=== PATIENT | male | born 1955 | race Caucasian/White ===

== ENCOUNTER 2016-11-25 14:48 | Inpatient (IN) | payer OTHER ==
--- NOTE | 2016-11-25 15:24 | PDOC ---
History of Present Illness <Adam Cespedes - Last Filed: 11/25/16 15:24> - General History Source: Patient Exam Limitations: No Limitations - History of Present Illness Initial Comments: 11/25/16 16:09 The patient is a 61 year old male with a significant past medical history of cardiac arrest and coma in 2009, s/p defibrillator, hypothyroidism, CVA with neuro deficits, and diabetes diagnosed (2 months ago), presenting to the Emergency Department with constipation for one week, and rectal bleeding. The patient reports that he has not been able to pass a bowel movement in one week. He admits to abdominal pain and a decreased appetite associated with the constipation. He reports taking OTC laxatives as well as a fleets enema that did not help his constipation. He admits that he now has bilateral leg pain, which is exacerbated by walking. He reports that in 2009 he was in cardiac arrest, without oxygen for 10 minutes, and was subsequently a coma for 2 months. His daughter reports that since the coma he has had neurologic deficits. She admits that he recently was diagnosed with diabetes about 2 months ago, and was placed on two new medications. She admits that since being on the new medications he has had intermittent diarrhea, constipation, and rectal bleeding. She describes the blood as light red. She also admits that the patient is a cigarette smoker, and has been smoking more often as of recently. The patient denies nausea, or vomiting. Patient denies fever, cough, or chills. Patient denies dysuria, urinary frequency, and urgency. Patient denies diarrhea , or hematochezia. [employer] Administrator: Dr. Jasiel Sahni PCP: [place]? Current Medications: Pravastin, Aspirin, Folic acid, Furosemide, Levothyroxine, glimepiride, Metformin, Levetiracetam, Carvedilol, Olanzapine, Warfarin, Lisinopril, and Amiodarone <Jill Alarcon - Last Filed: 11/25/16 16:50> <Viji Kelley - Last Filed: 11/25/16 21:11> <Cherelle Rangel - Last Filed: 11/26/16 01:57> - General Chief Complaint: Constipation Stated Complaint: CONSTIPATION/NOSE BLEED/leg cramping Time Seen by Provider: 11/25/16 15:24 Past History - Past Medical History Thyroid Disease: No - Psycho/Social/Smoking Cessation Hx Anxiety: No Suicidal Ideation: No Smoking History: Current some day smoker Number of Cigarettes Smoked Daily: 20 Information on smoking cessation initiated: No Hx Alcohol Use: No Drug/Substance Use Hx: No Substance Use Type: None <Adam Cespedes - Last Filed: 11/25/16 15:24> <AgnesSamii - Last Filed: 11/25/16 16:50> <Viji Kelley - Last Filed: 11/25/16 21:11> <Cherelle Rangel - Last Filed: 11/26/16 01:57> - Past Medical History Allergies/Adverse Reactions: Allergies Allergy/AdvReac Type Severity Reaction Status Date / Time No Known Allergies Allergy Verified 11/25/16 15:05 Home Medications: Ambulatory Orders Amiodarone HCl 200 mg PO DAILY 11/25/16 Aspirin [ASA -] 81 mg PO DAILY 11/25/16 Carvedilol [Coreg -] 6.25 mg PO ONCE 11/25/16 Folic Acid 1 mg PO DAILY 11/25/16 Furosemide 20 mg PO DAILY 11/25/16 Glimepiride 2 mg PO DAILY 11/25/16 Levetiracetam [Keppra Xr -] 500 mg PO DAILY 11/25/16 Levothyroxine [Synthroid -] 75 mcg PO DAILY 11/25/16 Lisinopril [Zestril] 5 mg PO DAILY 11/25/16 Metformin HCl 850 mg PO DAILY 11/25/16 Olanzapine 2.5 mg PO DAILY 11/25/16 Pravastatin Sodium [Pravachol (Nf)] 80 mg PO HS 11/25/16 Warfarin Sodium 7.5 mg PO DAILY 11/25/16 Review of Systems - Review of Systems Able to Perform ROS?: Yes Comments:: 11/25/16 16:10 GENERAL/CONSTITUTIONAL: No fever or chills. No weakness. HEAD, EYES, EARS, NOSE AND THROAT: No change in vision. No ear pain or discharge. No sore throat. CARDIOVASCULAR: No chest pain or shortness of breath. RESPIRATORY: No cough, wheezing, or hemoptysis. GASTROINTESTINAL: + abdominal pain, + constipation, + decreased appetite. No nausea, vomiting, diarrhea. GENITOURINARY: No dysuria, frequency, or change in urination. MUSCULOSKELETAL: + bilateral leg pain. No joint pain. No neck or back pain. SKIN: No rash NEUROLOGIC: No headache, vertigo, loss of consciousness, or change in strength/ sensation. ENDOCRINE: No increased thirst. No abnormal weight change. HEMATOLOGIC/LYMPHATIC: No anemia, easy bleeding, or history of blood clots. ALLERGIC/IMMUNOLOGIC: No hives or skin allergy. <Jill Alarcon - Last Filed: 11/25/16 16:50> *Physical Exam - Vital Signs Last Vital Signs Temp Pulse Resp BP Pulse Ox 98.8 F 79 18 111/74 100 11/25/16 15:02 11/25/16 15:02 11/25/16 15:02 11/25/16 15:02 11/25/16 15:02 <Adam Cespedes - Last Filed: 11/25/16 15:24> - Vital Signs Last Vital Signs Temp Pulse Resp BP Pulse Ox 98.8 F 79 18 111/74 100 11/25/16 15:02 11/25/16 15:02 11/25/16 15:02 11/25/16 15:02 11/25/16 15:02 - Physical Exam Comments: 11/25/16 16:11 GENERAL: Awake, alert, and fully oriented, in no acute distress HEAD: No signs of trauma EYES: PERRLA, EOMI, sclera anicteric, conjunctiva clear ENT: Auricles normal inspection, hearing grossly normal, nares patent, oropharynx clear without exudates. Moist mucosa NECK: Normal ROM, supple, no lymphadenopathy, JVD, or masses LUNGS: Breath sounds equal, clear to auscultation bilaterally. No wheezes, and no crackles HEART: Regular rate and rhythm, normal S1 and S2, no murmurs, rubs or gallops ABDOMEN: Abdomen distended and diffusely tender, most tender at left upper and left lower quadrants. Soft, No guarding, no rebound. No masses EXTREMITIES: Normal range of motion, no edema. No clubbing or cyanosis. No cords, erythema, or tenderness NEUROLOGICAL: Cranial nerves II through XII grossly intact. Normal speech SKIN: Warm, Dry, normal turgor, no rashes or lesions noted. <Jill Alarcon - Last Filed: 11/25/16 16:50> - Vital Signs Last Vital Signs Temp Pulse Resp BP Pulse Ox 98.8 F 79 18 111/74 100 11/25/16 15:02 11/25/16 15:02 11/25/16 15:02 11/25/16 15:02 11/25/16 15:02 <WarrenChapitoViji - Last Filed: 11/25/16 21:11> - Vital Signs Last Vital Signs Temp Pulse Resp BP Pulse Ox 98.8 F 79 18 111/74 100 11/25/16 15:02 11/25/16 15:02 11/25/16 15:02 11/25/16 15:02 11/25/16 15:02 <Cherelle Rangel - Last Filed: 11/26/16 01:57> Heart Score/ECG Review #1 ECG reviewed & interpreted by me at: 16:50 (EKG reviewed by Dr. Cespedes. Normal sinus rhythm. Normal rate. Normal interval. Normal EKG.) <Jill Alarcon - Last Filed: 11/25/16 16:50> ED Treatment Course - LABORATORY CBC & Chemistry Diagram: 11/25/16 16:35 11/25/16 16:35 <Jill Alarcon - Last Filed: 11/25/16 16:50> - LABORATORY CBC & Chemistry Diagram: 11/25/16 16:35 11/25/16 16:35 - ADDITIONAL ORDERS Additional order review: Laboratory Results 11/25/16 11/25/16 11/25/16 18:20 17:55 17:55 INR < 15.00 H* PTT (Actin FS) > 400.0 H Sodium Potassium Chloride Carbon Dioxide Anion Gap BUN Creatinine Creat Clearance w eGFR Random Glucose Calcium Total Bilirubin AST ALT Alkaline Phosphatase Creatine Kinase Creatine Kinase Index CK-MB (CK-2) CK-MB (CK-2) Rel Index Troponin I B-Natriuretic Peptide Total Protein Albumin Lipase Urine Color Red Urine Appearance Cloudy Urine pH 6.0 Urine Protein 2+ H Urine Glucose (UA) Negative Urine Ketones Negative Urine Blood 2+ H Urine Nitrite Negative Urine Bilirubin Negative Urine Urobilinogen Negative Ur Leukocyte Esterase Trace H Urine RBC 3395 Urine WBC 89 Ur Epithelial Cells Few Urine Mucus Many Blood Type A POSITIVE Antibody Screen Negative 11/25/16 11/25/16 11/25/16 16:35 16:35 16:35 INR PTT (Actin FS) Sodium 138 Potassium 4.5 Chloride 100 Carbon Dioxide 26 Anion Gap 12 BUN 29 H Creatinine 1.6 H Creat Clearance w eGFR 44.46 Random Glucose 126 H Calcium 9.7 Total Bilirubin 0.6 AST 28 ALT 37 Alkaline Phosphatase 77 Creatine Kinase 335 H Creatine Kinase Index 0.5 CK-MB (CK-2) 1.820 CK-MB (CK-2) Rel Index Cancelled Troponin I < 0.02 B-Natriuretic Peptide 56.70 Total Protein 8.3 H Albumin 3.8 Lipase 227 Urine Color Urine Appearance Urine pH Urine Protein Urine Glucose (UA) Urine Ketones Urine Blood Urine Nitrite Urine Bilirubin Urine Urobilinogen Ur Leukocyte Esterase Urine RBC Urine WBC Ur Epithelial Cells Urine Mucus Blood Type Antibody Screen 11/25/16 16:35 INR > 15.00 H* PTT (Actin FS) Sodium Potassium Chloride Carbon Dioxide Anion Gap BUN Creatinine Creat Clearance w eGFR Random Glucose Calcium Total Bilirubin AST ALT Alkaline Phosphatase Creatine Kinase Creatine Kinase Index CK-MB (CK-2) CK-MB (CK-2) Rel Index Troponin I B-Natriuretic Peptide Total Protein Albumin Lipase Urine Color Urine Appearance Urine pH Urine Protein Urine Glucose (UA) Urine Ketones Urine Blood Urine Nitrite Urine Bilirubin Urine Urobilinogen Ur Leukocyte Esterase Urine RBC Urine WBC Ur Epithelial Cells Urine Mucus Blood Type Antibody Screen 11/25/16 16:35 RBC 5.36 MCV 89.8 MCHC 32.1 RDW 13.5 MPV 10.5 Neutrophils % 34.0 L Lymphocytes % 60.0 H Monocytes % 4.0 - RADIOLOGY Radiology Studies Ordered: 11/25/16 20:[address] was reviewed by Dr. Rangel and over-read by Radiology. Impression: FINDINGS: Several images repeated due to motion artifact. Mild diffuse atrophy and mild underlying chronic microvascular ischemic disease. There is no CT evidence of acute sequelae hemorrhage, cortical infarction, mass lesion, mass effect, hydrocephalus or abnormal extraaxial collection. No acute skull fracture noted. No acute sinusitis. Bilateral mastoid effusions seen. Possible prior right partial mastectomy. Correlate with history. Right otitis media is also seen. 11/25/16 21:11 Abdomen/Pelvis CT was reviewed by Dr. Rangel and over-read by Radiology. Impression: Evidence of AICD. Severe coronary artery calcifications. No bowel obstruction, perforation, free air, free fluid or abscess. No abnormal bowel thickening to suggest colitis or diverticulitis. Normal appendix. Cholelithiasis and bile sludge noted. No gallbladder wall thickening or bile duct dilatation seen. No renal or ureteral stone present. Small exophytic right renal cortical cyst. No significant hydronephrosis or hydroureter. Mild left perinephric stranding and the left periureteral stranding seen. Urinary bladder decompressed without stones. Cannot exclude recent passage of stone on the left or left ureteritis. Correlate for left flank pain and hematuria. Mild prostate enlargement with calcification. Lumbar degenerative disc disease. Calcified disc herniation at L4-5. - Medications Given in the ED: ED Medications Discontinued Medications Generic Name Dose Route Start Last Admin Trade Name Freq PRN Reason Stop Dose Admin Sodium Chloride 500 mls @ 500 mls/hr 11/25/16 17:46 11/25/16 17:55 Normal Saline - IV 11/25/16 18:45 500 mls/hr ASDIR STA Administration Phytonadione 10 mg 11/25/16 19:54 11/25/16 20:09 Aqua Mephyton Injection - SQ 11/25/16 19:55 10 mg ONCE ONE Administration <Viji Kelley - Last Filed: 11/25/16 21:11> - LABORATORY CBC & Chemistry Diagram: 11/25/16 23:55 11/25/16 16:35 - ADDITIONAL ORDERS Additional order review: Laboratory Results 11/25/16 11/25/16 11/25/16 18:20 17:55 16:35 INR < 15.00 H* PTT (Actin FS) > 400.0 H Sodium Potassium Chloride Carbon Dioxide Anion Gap BUN Creatinine Creat Clearance w eGFR Random Glucose Calcium Total Bilirubin AST ALT Alkaline Phosphatase Creatine Kinase Creatine Kinase Index CK-MB (CK-2) CK-MB (CK-2) Rel Index Cancelled Troponin I B-Natriuretic Peptide Total Protein Albumin Lipase Urine Color Red Urine Appearance Cloudy Urine pH 6.0 Urine Protein 2+ H Urine Glucose (UA) Negative Urine Ketones Negative Urine Blood 2+ H Urine Nitrite Negative Urine Bilirubin Negative Urine Urobilinogen Negative Ur Leukocyte Esterase Trace H Urine RBC 3395 Urine WBC 89 Ur Epithelial Cells Few Urine Mucus Many 11/25/16 11/25/16 11/25/16 16:35 16:35 16:35 INR > 15.00 H* PTT (Actin FS) Sodium 138 Potassium 4.5 Chloride 100 Carbon Dioxide 26 Anion Gap 12 BUN 29 H Creatinine 1.6 H Creat Clearance w eGFR 44.46 Random Glucose 126 H Calcium 9.7 Total Bilirubin 0.6 AST 28 ALT 37 Alkaline Phosphatase 77 Creatine Kinase 335 H Creatine Kinase Index 0.5 CK-MB (CK-2) 1.820 CK-MB (CK-2) Rel Index Troponin I < 0.02 B-Natriuretic Peptide 56.70 Total Protein 8.3 H Albumin 3.8 Lipase 227 Urine Color Urine Appearance Urine pH Urine Protein Urine Glucose (UA) Urine Ketones Urine Blood Urine Nitrite Urine Bilirubin Urine Urobilinogen Ur Leukocyte Esterase Urine RBC Urine WBC Ur Epithelial Cells Urine Mucus 11/25/16 16:35 RBC 5.36 MCV 89.8 MCHC 32.1 RDW 13.5 MPV 10.5 Neutrophils % 34.0 L Lymphocytes % 60.0 H Monocytes % 4.0 - RADIOLOGY Radiology Studies Ordered: Category Date Time Status HEAD CT WITHOUT CONTRAST [CT] Stat CT Scan 11/25/16 19:04 Taken CHEST X-RAY PORTABLE* [RAD] Stat Radiology 11/25/16 19:38 Taken - Medications Given in the ED: ED Medications Discontinued Medications Generic Name Dose Route Start Last Admin Trade Name Freq PRN Reason Stop Dose Admin Sodium Chloride 500 mls @ 500 mls/hr 11/25/16 17:46 11/25/16 17:55 Normal Saline - IV 11/25/16 18:45 500 mls/hr ASDIR STA Administration Phytonadione 10 mg 11/25/16 19:54 11/25/16 20:09 Aqua Mephyton Injection - SQ 11/25/16 19:55 10 mg ONCE ONE Administration <Cherelle Rangel - Last Filed: 11/26/16 01:57> Medical Decision Making - Medical Decision Making 11/25/16 21:14 ct scan head -negaitve for any acute intracranil pathology -evidence of prior right partial mastoidectomy,rt otitis media -mild diffuse atrophy <Cherelle Rangel - Last Filed: 11/26/16 01:57> *DC/Admit/Observation/Transfer - Attestations Physician Attestion: 11/25/16 15:24 I, Dr. Adam Cespedes, attest that this document has been prepared under my direction and personally reviewed by me in its entirety. I further attest, that it accurately reflects all work, treatment, procedures and medical decision -making performed by me. <Adam Cespedes - Last Filed: 11/25/16 15:24> - Attestations Scribe Attestion: 11/25/16 16:13 Documentation prepared by Jill Alarcon, acting as medical fee clerk for Adam Cespedes DO. <Jill Alarcon - Last Filed: 11/25/16 16:50> <Viji Kelley - Last Filed: 11/25/16 21:11> - Discharge Dispostion Admit: Yes <Cherelle Rangel - Last Filed: 11/26/16 01:57> Diagnosis at time of Disposition: Elevated INR (international normalized ratio) due to prior anticoagulant medication ingestion, Hematuria UTI (urinary tract infection) Qualifiers: Urinary tract infection type: acute cystitis Hematuria presence: with hematuria Qualified Code(s): N30.01 - Acute cystitis with hematuria Leukocytosis Qualifiers: Leukocytosis type: other Qualified Code(s): D72.828 - Other elevated white blood cell count - Referrals
[2016-11-25 16:44] LABS: MCH 28.8 pg (25.7-33.7); MCHC 32.1 g/dl (32.0-35.9); MEAN CELL VOLUME 89.8 fl (80-96); MEAN PLT VOLUME 10.5 fl (7.5-11.1); PLATELET COUNT 138 K/MM3 (134-434); RDW 13.5 % (11.9-15.9)
[2016-11-25 17:05] LABS: ALBUMIN 3.8 g/dl (3.4-5.0); ANION GAP 12 (8-16); BILIRUBIN,TOTAL 0.6 mg/dL (0.2-1.0); CALCIUM 9.7 mg/dL (8.5-10.1); CO2 26 mmol/L (21-32); COCKROFT - GAULT 69.84; CREATININE 1.6 mg/dL (0.7-1.3); GLUCOSE,RANDOM 126 mg/dL (74-106); SGOT/AST 28 U/L (15-37); SGPT/ALT 37 U/L (12-78); TOT PROT 8.3 g/dl (6.4-8.2)
[2016-11-25 17:06] LABS: INR > 15.00 (0.82-1.09)
[2016-11-25 17:08] LABS: ALK PHOS 77 U/L (45-117)
[2016-11-25 17:10] LABS: TROPONIN I < 0.02 ng/ml (0.00-0.05)
[2016-11-25 17:22] LABS: PLATELET ESTIMATE ADEQUATE (NORMAL)
[2016-11-25] MEDS ORDERED: SODIUM CHLORIDE 500 ML IV STA (17:46)
[2016-11-25 18:28] LABS: URINE APPEARANCE CLOUDY; URINE BILIRUBIN NEGATIVE (NEGATIVE); URINE COLOR RED; URINE GLUCOSE (UA) NEGATIVE (NEGATIVE); URINE KETONE NEGATIVE (NEGATIVE); URINE NITRITE NEGATIVE (NEGATIVE); URINE UROBILINOGEN NEGATIVE E.U./dl (0.2-1.0)
[2016-11-25 18:42] LABS: URINE BLOOD 2+ (NEGATIVE); URINE LEUK ESTERASE TRACE (NEGATIVE); URINE PROTEIN 2+ (NEGATIVE)
[2016-11-25 18:57] LABS: URINE MUCUS MANY; URINE RBC 3395 /hpf (0-3); URINE WBC 89 /hpf (3-5)
[2016-11-25 19:02] LABS: INR < 15.00 (0.82-1.09)
[2016-11-25 19:03] LABS: ACTIVATED PTT > 400.0 SECONDS (26.9-34.4)
[2016-11-25] MEDS ORDERED: PHYTONADIONE 10 MG/1 ML AMP SQ ONE (19:54)
[2016-11-25] MEDS ORDERED: PHYTONADIONE 10 MG/1 ML AMP ONE (20:01)
--- NOTE | 2016-11-25 20:28 | PN ---
<Cristina Bettencourt - Last Filed: 11/25/16 20:28> Teaching Attending Note Name of Resident: Marcus Wilkinson ATTENDING PHYSICIAN STATEMENT I saw and evaluated the patient. I reviewed the resident's note and discussed the case with the resident. I agree with the resident's findings and plan as documented. SUBJECTIVE: OBJECTIVE: ASSESSMENT AND PLAN: <GeraldAmanda - Last Filed: 11/25/16 23:23> Teaching Attending Note ATTENDING PHYSICIAN STATEMENT I saw and evaluated the patient. I reviewed the resident's note and discussed the case with the resident. I agree with the resident's findings and plan as documented. SUBJECTIVE: Patient is a 61 year old male with a significant past medical history of cardiac arrest and coma in 2009, s/p ICD, hypothyroidism, CVA with residual neuro deficits, and diabetes diagnosed (2 months ago), presenting to the Emergency Department 1 week hx of rectal bleeding also has constipation this week. Patient states that he took 4 laxatives Saturday and Saturday and had an enema with no relief. He denies any rectal bleeding today but reports rectal bleeding last week. As per daughter, she reports bright red blood in the bowel and rectum last week. He also reports dark urine and hematochezia. Patient also reports 1 episode of epistaxis. He also reports bilateral leg pain worsened by ambulation. States he was in coma for 2 months s/p cardiac arrest and has residual neuro deficits. Daughter states that his last INR was checked awhile ago. She notes that she is usually in charge of organizing his pills for the week, but the patient did his pills this week and placed extra dose of Warfarin. Patient usually takes 7.5 mg daily and took 15 mg instead. The patient denies nausea, or vomiting. Patient denies fever, cough, or chills. Patient denies dysuria, urinary frequency, and urgency. Patient denies diarrhea or hematochezia. OBJECTIVE: VS: Last Vital Signs Temp Pulse Resp BP Pulse Ox 100.1 F H 75 20 112/74 92 L 11/25/16 21:14 11/25/16 21:14 11/25/16 21:14 11/25/16 21:14 11/25/16 21:14 Physical Exam: GEN: NAD, sitting in a chair HEENT: NCAT, PERRL CARD: RRR, S1 S2 RESP: CTAB ABD: Soft, slightly distended NT, BWS x4 EXT: - CCE Rectal exam: no shelby blood, brown stool, no hemorrhoids Labs: CBCD WBC 24.0 K/mm3 (4.0-10.0) H 11/25/16 16:35 RBC 5.36 M/mm3 (4.00-5.60) 11/25/16 16:35 Hgb 15.4 GM/dL (11.7-16.9) 11/25/16 16:35 Hct 48.1 % (35.4-49) 11/25/16 16:35 MCV 89.8 fl (80-96) 11/25/16 16:35 MCHC 32.1 g/dl (32.0-35.9) 11/25/16 16:35 RDW 13.5 % (11.9-15.9) 11/25/16 16:35 Plt Count 138 K/MM3 (134-434) 11/25/16 16:35 MPV 10.5 fl (7.5-11.1) 11/25/16 16:35 CMP Sodium 138 mmol/L (136-145) 11/25/16 16:35 Potassium 4.5 mmol/L (3.5-5.1) 11/25/16 16:35 Chloride 100 mmol/L (98-107) 11/25/16 16:35 Carbon Dioxide 26 mmol/L (21-32) 11/25/16 16:35 Anion Gap 12 (8-16) 11/25/16 16:35 BUN 29 mg/dL (7-18) H 11/25/16 16:35 Creatinine 1.6 mg/dL (0.7-1.3) H 11/25/16 16:35 Creat Clearance w eGFR 44.46 (>60) 11/25/16 16:35 Calcium 9.7 mg/dL (8.5-10.1) 11/25/16 16:35 Total Bilirubin 0.6 mg/dL (0.2-1.0) 11/25/16 16:35 AST 28 U/L (15-37) 11/25/16 16:35 ALT 37 U/L (12-78) 11/25/16 16:35 Alkaline Phosphatase 77 U/L (45-117) 11/25/16 16:35 Total Protein 8.3 g/dl (6.4-8.2) H 11/25/16 16:35 Albumin 3.8 g/dl (3.4-5.0) 11/25/16 16:35 ASSESSMENT AND PLAN: 61 year old male with a significant past medical history of cardiac arrest and coma in 2009, s/p ICD, hypothyroidism, CVA with residual neuro deficits, and diabetes diagnosed (2 months ago), who presents with supratherapeudic INR, hematuria and UTI 1. supratherapeutic INR - Most to coumadin overdose - S/p vitamin K 10 in ED - Monitor INR/bleeding - Continue vitamin K if continue bleeding - Stool occult negative most likely from urine - Repeat CBC stat - FFP - Recheck coags at midnight - Follow up CT head report - If extremely worse or severe life threatening bleeding occurs consider 4 factor PCC - Social work consult - PCP follow up 2. Rectal bleeding -Stool occult negative most likely from urine -Hold aspirin -Consider transfusion of platelets if less than 100 -Reverse INR to therapeutic range -FFP transfusion due to ongoing hemauria -Recheck CBC Q8 3. Hemauria -Most likely to cystitis -Stat CBC -U culture -Cephtriaxone 4.Constipation -Miralax, colace and senna 5. DM -RISS -NPO -Hold PO meds 6. Acute kidney injury -most likely due to Coumadin overdose -monitor -electrolytes in AM 7. Hypertension - hold JUANITA 8. Hx of cardiac arrest - Continue amiodarone 9. DVT ppx - Supratherapeutic INR - SCDs Fall risk precautions. Admit to ICU. Critical care time 38 minutes. Documentation prepared by Amanda Duarte acting as medical technician for Cristina Bettencourt D.O
[2016-11-25] MEDS ORDERED: CEFTRIAXONE 1 GM in DEXTROSE 5%-WATER - 50 ML IVPB ONE (20:49)
[2016-11-25] MEDS ORDERED: CEFTRIAXONE 50 ML ONE (21:07)
--- NOTE | 2016-11-25 21:58 | CONSULT ---
Consult Consult Specialty:: Pulm/CCM Referred by:: Hospitalist Reason for Consultation:: Supertherapeutic INR - History of Present Illness Chief Complaint: hematuria, BRBPR History of Present Illness: Mr Torres is a 61 year old male with past medical history significant for cardiac arrest and coma in 2009, s/p ICD on chronic A/c, hypothyroidism, CVA with residual neuro deficits, recent dx of DMII, now presenting to the ED with 1 week of intermittent rectal bleeding insetting of constipation x 5-7days and self enema. Pt has apparently been organizing his medications for about one week (usually performed by sister) and was taking double dose of coumadin during that time. He has been having light red hematochezia, hematuria and 1 episode of epistaxis which self resolved. Brought to ED by sister for evaluation of bleeding issues and constipation. Denies: falls, chest pain, hematemesis, dysuria or frequency. In ED pt was afebrile, nomotensive and without distress. Labs notable for INR > 15, pTT > 400, WBC 14, dirty UA 78wbc trace LE. CThead and AP were unrevealing for large bleed, awaiting final read. Hgb 15, plts 126. Cr 1.6 (unk baseline). Vit K 10 mg given, FFP x 2 ordered. Transferred to ICU for further care. - Alcohol/Substance Use Hx Alcohol Use: No - Smoking History Smoking history: Current some day smoker Aproximately how many cigarettes per day: 20 Home Medications - Allergies Allergies/Adverse Reactions: Allergies Allergy/AdvReac Type Severity Reaction Status Date / Time No Known Allergies Allergy Verified 11/25/16 15:05 - Home Medications Home Medications: Ambulatory Orders Amiodarone HCl 200 mg PO DAILY 11/25/16 Aspirin [ASA -] 81 mg PO DAILY 11/25/16 Carvedilol [Coreg -] 6.25 mg PO ONCE 11/25/16 Folic Acid 1 mg PO DAILY 11/25/16 Furosemide 20 mg PO DAILY 11/25/16 Glimepiride 2 mg PO DAILY 11/25/16 Levetiracetam [Keppra Xr -] 500 mg PO DAILY 11/25/16 Levothyroxine [Synthroid -] 75 mcg PO DAILY 11/25/16 Lisinopril [Zestril] 5 mg PO DAILY 11/25/16 Metformin HCl 850 mg PO DAILY 11/25/16 Olanzapine 2.5 mg PO DAILY 11/25/16 Pravastatin Sodium [Pravachol (Nf)] 80 mg PO HS 11/25/16 Warfarin Sodium 7.5 mg PO DAILY 11/25/16 Family Disease History - Family Disease History Family History: Unremarkable Review of Systems - Review of Systems Constitutional: reports: No Symptoms Eyes: reports: No Symptoms HENT: reports: Epistaxis Neck: reports: No Symptoms Cardiovascular: reports: No Symptoms. denies: Chest Pain, Shortness of Breath Respiratory: denies: No Symptoms, Hemoptysis Gastrointestinal: reports: Rectal Bleeding. denies: Melena, Vomiting Blood Genitourinary: denies: Burning, Flank Pain, Frequency Breasts: reports: No Symptoms Reported Musculoskeletal: reports: No Symptoms Integumentary: reports: No Symptoms Neurological: reports: No Symptoms Endocrine: reports: No Symptoms Hematology/Lymphatic: reports: No Symptoms Psychiatric: reports: No Symptoms Physical Exam Vital Signs: Vital Signs Temperature 100.1 F H 11/25/16 21:14 Pulse Rate 75 11/25/16 21:14 Respiratory Rate 20 11/25/16 21:14 Blood Pressure 112/74 11/25/16 21:14 O2 Sat by Pulse Oximetry (%) 92 L 11/25/16 21:14 Constitutional: Yes: Well Nourished, No Distress Eyes: Yes: WNL, PERRL HENT: Yes: Atraumatic, Normocephalic Neck: Yes: Supple Cardiovascular: Yes: Regular Rate and Rhythm, S1, S2 Respiratory: Yes: CTA Bilaterally. No: Accessory Muscle Use Gastrointestinal: Yes: Soft, Abdomen, Obese, Distention, Hypoactive Bowel Sounds. No: Melena ...Rectal Exam: Yes: WNL Renal/: Yes: WNL Breast(s): Yes: WNL Musculoskeletal: Yes: WNL Extremities: Yes: WNL Edema: Yes Edema: LUE: Trace, RUE: Trace, LLE: 1+, RLE: 1+ Peripheral Pulses WNL: Yes Integumentary: Yes: WNL Neurological: Yes: WNL, Alert, Oriented, Cran Nerves II-XII Intact, Other (mild deficit in attention and cognition.). No: Facial Droop ...Motor Strength: WNL Psychiatric: Yes: WNL Labs: CBC, BMP 11/25/16 23:55 11/25/16 16:35 Lab Results WBC 18.0 K/mm3 (4.0-10.0) H 11/25/16 23:55 RBC 4.83 M/mm3 (4.00-5.60) 11/25/16 23:55 Hgb 13.9 GM/dL (11.7-16.9) 11/25/16 23:55 Hct 43.1 % (35.4-49) 11/25/16 23:55 MCV 89.2 fl (80-96) 11/25/16 23:55 MCHC 32.3 g/dl (32.0-35.9) 11/25/16 23:55 RDW 13.5 % (11.9-15.9) 11/25/16 23:55 Plt Count 111 K/MM3 (134-434) L 11/25/16 23:55 Sodium 138 mmol/L (136-145) 11/25/16 16:35 Potassium 4.5 mmol/L (3.5-5.1) 11/25/16 16:35 Chloride 100 mmol/L (98-107) 11/25/16 16:35 Carbon Dioxide 26 mmol/L (21-32) 11/25/16 16:35 Anion Gap 12 (8-16) 11/25/16 16:35 BUN 29 mg/dL (7-18) H 11/25/16 16:35 Creatinine 1.6 mg/dL (0.7-1.3) H 11/25/16 16:35 Random Glucose 126 mg/dL (74-106) H 11/25/16 16:35 Calcium 9.7 mg/dL (8.5-10.1) 11/25/16 16:35 Blood Type A POSITIVE 11/25/16 22:21 Antibody Screen Positive H 11/25/16 22:21 INR < 15.00 (0.82-1.09) H* 11/25/16 17:55 Imaging - Results Cat Scan: Pending (pending read on CT head (no blood or apparetn infarct seen) and CTAP), Image Reviewed Problem List - Problems (1) Elevated INR (international normalized ratio) due to prior anticoagulant medication ingestion Code(s): R78.89 - FINDING OF OTH SUBSTANCES, NOT NORMALLY FOUND IN BLOOD (2) Hematuria Code(s): R31.9 - HEMATURIA, UNSPECIFIED (3) Leukocytosis Code(s): D72.829 - ELEVATED WHITE BLOOD CELL COUNT, UNSPECIFIED Qualifiers: Leukocytosis type: other Qualified Code(s): D72.828 - Other elevated white blood cell count (4) UTI (urinary tract infection) Code(s): N39.0 - URINARY TRACT INFECTION, SITE NOT SPECIFIED Qualifiers: Urinary tract infection type: acute cystitis Hematuria presence: with hematuria Qualified Code(s): N30.01 - Acute cystitis with hematuria Assessment/Plan A/ 61 y/o man with hx of CAD, cardiac arrest s/p AMI, on chronic A/C, DM now admitted with constipation found to have supertherapeutic INR in setting of accidental overdose c/b hematuria, epistaxis . P/ Supertherapeutic INR -Vit K 10mg given and now 1mg day x 3 days at min -if hemodynamically stable and hgb stable well over 10 , would need 6+ units of FFP to correct INR, as not actively bleeding would be conservative, agreed w/ 2FFP -monitor for bleeding -q8 CBC, transfuse hgb <8, plts < 50. If acute drop in hgb, will place large bore access -f/u fibrinogen -minimize fall risk Constipation: -minimize instrumentation, no rectal tube/enemas until INR corrected -miralax q 12, senna,colace - f/u on CTAP read -pain control, minimize opiates if possible Hematuria, + UA likely cystitis -ceftriaxone -f/u ucxl -no erickson Cr 1.6, ? TUNG -hydrate and follow -urine lytes -hold acei -cont amio, hold asa -cont other home meds (Antiepilieptics, hyperglycemics, etc) Doc Beltre ACNP [id number] minCCT
--- NOTE | 2016-11-25 22:25 | HP ---
CHIEF COMPLAINT: constipation, hematuria, epitaxis PCP: HISTORY OF PRESENT ILLNESS: 61 year old male with pmh of cardiac arrest, CVA with neuro deficits in 2009 on Coumadin, s/p defibrillator, HLPD, hypothyroidism, and diabetes presents to the Ed with complaint of constipation, epitaxis and hematuria. The hematuria started this morning with bloody urine, dyruria, no fever or chills. Patient also have epitaxis which started this morning but since the has stopped spontaneously. The patient also report having bright red blood per rectum within the last week and half to 2 weeks. The patient is on Coumadin and the daughter usually manages her medications but the patient took extra medications as he argues that he would be missing some doses. The patient complains of constipation for the last week, last bowel movement was soft, brown, no melena, no hematochezia. The patient report to have tried stool softener, enema with no success. The past 3 months patient has been having constipation alternating with diarrhea. The patient is having ab last colonoscopy was.. and it was. The patient also report abdominal pain and distention which started today mild intermittent, cramping in nature location to left abdomen. Pt denies any weakness, fatigue, weight loss, nausea, vomiting, no dizziness or lightheadedness ER course was notable for: (1) INR 15, PTT 400 (2) Vitamin K 10 mg SQ (3) Ceftriaxone 1gm Iv once Recent Travel: none PAST MEDICAL HISTORY: cardiac arrest, CVA with neuro deficits in 2009 on Coumadin, s/p defibrillator, HLPD, hypothyroidism, and diabetes PAST SURGICAL HISTORY: Defibrillator March 2016, right ear surgery Social History: Smokin year smoking with 1.5 to 2 pack per day Alcohol: denies Drugs: denies Family History: Mother with diabetes, breast cancer. Grandpa with brain mets ,e mphysema Allergies No Known Allergies Allergy (Verified 11/25/16 15:05) HOME MEDICATIONS: Home Medications Medication Instructions Recorded Amiodarone HCl 200 mg PO DAILY 11/25/16 Aspirin [ASA -] 81 mg PO DAILY 11/25/16 Carvedilol [Coreg -] 6.25 mg PO ONCE 11/25/16 Folic Acid 1 mg PO DAILY 11/25/16 Furosemide 20 mg PO DAILY 11/25/16 Glimepiride 2 mg PO DAILY 11/25/16 Levetiracetam [Keppra Xr -] 500 mg PO DAILY 11/25/16 Levothyroxine [Synthroid -] 75 mcg PO DAILY 11/25/16 Lisinopril [Zestril] 5 mg PO DAILY 11/25/16 Metformin HCl 850 mg PO DAILY 11/25/16 Olanzapine 2.5 mg PO DAILY 11/25/16 Pravastatin Sodium [Pravachol (Nf)] 80 mg PO HS 11/25/16 Warfarin Sodium 7.5 mg PO DAILY 11/25/16 REVIEW OF SYSTEMS CONSTITUTIONAL: Absent: fever, chills, diaphoresis, generalized weakness, malaise, loss of appetite, weight change HEENT: Absent: rhinorrhea, nasal congestion, throat pain, throat swelling, difficulty swallowing, mouth swelling, ear pain, eye pain, visual changes CARDIOVASCULAR: Absent: chest pain, syncope, palpitations, irregular heart rate, lightheadedness , peripheral edema RESPIRATORY: Absent: cough, shortness of breath, dyspnea with exertion, orthopnea, wheezing, stridor, hemoptysis GASTROINTESTINAL:abdominal pain, abdominal distension, hematochezia, constipation Absent: , nausea, vomiting, diarrhea, melena GENITOURINARY: hematuria, dysuria, frequency Absent: urgency, hesitancy, flank pain, genital pain MUSCULOSKELETAL: myalgia, letft thigh pain Absent:arthralgia, joint swelling, back pain, neck pain SKIN: Absent: rash, itching, pallor HEMATOLOGIC/IMMUNOLOGIC: easy bleeding, easy bruising, Absent: lymphadenopathy, frequent infections ENDOCRINE: Absent: unexplained weight gain, unexplained weight loss, heat intolerance, cold intolerance NEUROLOGIC: Absent: headache, focal weakness or paresthesias, dizziness, unsteady gait, seizure, mental status changes, bladder or bowel incontinence PSYCHIATRIC: Absent: anxiety, depression, suicidal or homicidal ideation, hallucinations. PHYSICAL EXAMINATION Vital Signs - 24 hr 11/25/16 21:14 Temperature 100.1 F H Pulse Rate [ 75 Right Radial] Respiratory 20 Rate Blood Pressure 112/74 [Right Arm] O2 Sat by Pulse 92 L Oximetry (%) GENERAL: Awake, alert, and fully oriented, in no acute distress. HEAD: Normal with no signs of trauma. EYES: Pupils equal, round and reactive to light, extraocular movements intact, sclera anicteric, conjunctiva clear. No lid lag. EARS, NOSE, THROAT: Ears normal, nares patent, oropharynx clear without exudates. Moist mucous membranes. NECK: Normal range of motion, supple without lymphadenopathy, JVD, or masses. LUNGS: Breath sounds equal, clear to auscultation bilaterally. No wheezes, and no crackles. No accessory muscle use. HEART: Regular rate and rhythm, normal S1 and S2 without murmur, rub or gallop. ABDOMEN: Soft, suprapubic and left lower quadrant tenderness, distended, normoactive bowel sounds, no guarding, no rebound, no masses. No hepatomegaly or splenomegaly. Rectal exam: no lesion, no hemorrhoids, no fissure in external perianal region, normal rectal sphincter with no mass felt, one small pellet of hard stool in rectal vault, propstate smooth and mildly enlarged, gloved matias covered with brown stool, non bloody. MUSCULOSKELETAL: Normal range of motion at all joints. No bony deformities or tenderness. No CVA tenderness. UPPER EXTREMITIES: 2+ pulses, warm, well-perfused. No cyanosis. No clubbing. No peripheral edema. LOWER EXTREMITIES: 2+ pulses, warm, well-perfused. No calf tenderness. No peripheral edema. NEUROLOGICAL: Cranial nerves II-XII intact. Normal speech. wide slow gait. strength 5/5 in all ext, normal sensation to light touch in all ext, normal reflex in all ext. PSYCHIATRIC: uncoooperative at times. Good eye contact. Appropriate mood and affect. forgetful sometimes SKIN: Warm, dry, normal turgor, no rashes or lesions noted, normal capillary refill. Laboratory Results - last 24 hr 11/25/16 21:55 Stool Occult Blood Negative ASSESSMENT/PLAN: 61 year old male with pmh of cardiac arrest, CVA with neuro deficits in 2009 on Coumadin, s/p defibrillator, HLPD, hypothyroidism, and diabetes presents to the Ed with complaint of constipation, epitaxis and hematuria. Pt was found to have INR 15 and PTT 400. Supra therapeutic INR Pt is noncompliant to medication and may have been taking extra Coumadin doses INR 15 PTT 400 Epitaxis, Gross hematuria CT abdomen no bleeding, left perinephric and periureteral stranding CT head no bleeding Received Vitamin K in ED 10mg SC CBC and Coag q6h ICU monitoring Bleeding precaution Pt with frequent fall, Fall precaution FFP 2 units Consider 4 factor PCC ( factor II, VII, IX, X) if severe bleeding or drop in hgb Consider Transfusion in Hbg less than 8 or acute drop by 2 or more points Consider plt transfusion in PLT less than 50 Consider GI consult Constipation It has been one week since last Bowel Movement per patient, Per daughter it only has been 4 days Start Colace BID start Senna BID Start Miralax BID Consider enema UTI UA with hematuria , c/o dysuria and frequency f/u urine culture start culture TUNG Cr 1.6, unknown baseline CT abdomen/pelvis showed perinephric/periureteral stranding, no hydropnephosis, no ureteral stones seen. need to obtain records from PCP consider urine lytes urine creatinine, urine sodium strict intake and output Hold JUANITA Avoid nephrotoxins Diabetes BGM ACHS Novolog sliding scale HTN Hold JUANITA Resume Coreg with parameter once dose is verified Cardiac Arrhythmia Resume amiodarone Resume Coreg Hold Coumadin due to supra therapeutic INR FEN Fluid: none Electrolytes: bmp in am Nutrition: NPO for now, Cardiac/diabetic diet if hgb stable and no bleeding in am DVT prophylaxis: Hold Coumadin due to supratherapeutic INR, SCD Disposition: Admit to ICU, Watch for bleeding, Fall precaution Visit type - Emergency Visit Emergency Visit: Yes ED Registration Date: 11/25/16 Care time: The patient presented to the Emergency Department on the above date and was hospitalized for further evaluation of their emergent condition. - New Patient This patient is new to me today: Yes Date on this admission: 11/26/16 - Critical Care Critical Care patient: Yes Total Critical Care Time (in minutes): 40 Critical Care Statement: The care of this patient involved high complexity decision making to prevent further life threatening deterioration of the patient 's condition and/or to evalute & treat vital organ system(s) failure or risk of failure.
[2016-11-26 00:01] VITALS: BMI 37.6
[2016-11-26 00:11] LABS: MCH 28.9 pg (25.7-33.7); MCHC 32.3 g/dl (32.0-35.9); MEAN CELL VOLUME 89.2 fl (80-96); MEAN PLT VOLUME 10.2 fl (7.5-11.1); RDW 13.5 % (11.9-15.9)
[2016-11-26 00:36] LABS: PLATELET COUNT 111 K/MM3 (134-434)
[2016-11-26] MEDS: SENNOSIDES/DOCUSATE COMBO (SENNA PLUS) TABLET (UD) PO SCH ×3 (01:27→21:09)
[2016-11-26 01:47] LABS: ACTIVATED PTT 151.3 SECONDS (26.9-34.4)
[2016-11-26 01:48] LABS: INR 20.2 (0.82-1.09); PROTHROMBIN TIME (PATIENT) 236.3 SEC (9.98-11.88)
[2016-11-26 06:16] LABS: MCH 28.9 pg (25.7-33.7); MCHC 32.4 g/dl (32.0-35.9); MEAN CELL VOLUME 89.2 fl (80-96); MEAN PLT VOLUME 10.3 fl (7.5-11.1); PLATELET COUNT 109 K/MM3 (134-434); RDW 13.2 % (11.9-15.9); WHITE BLOOD COUNT 21.7 K/mm3 (4.0-10.0)
[2016-11-26] MEDS: INSULIN SLIDING SCALE (NOVOLOG) 1 VIAL SQ SCH ×4 (06:22→21:31)
[2016-11-26] MEDS: LEVOTHYROXINE NA 75 MCG TABLET (FP) PO SCH (06:24)
[2016-11-26 06:33] LABS: PROTHROMBIN TIME (PATIENT) 54.1 SEC (9.98-11.88)
[2016-11-26 06:35] LABS: ACTIVATED PTT 68.1 SECONDS (26.9-34.4)
[2016-11-26 06:45] LABS: INR 4.76 (0.82-1.09)
[2016-11-26 06:59] LABS: ALBUMIN 3.6 g/dl (3.4-5.0); BILIRUBIN,TOTAL 0.6 mg/dL (0.2-1.0); CALCIUM 9.2 mg/dL (8.5-10.1); CREATININE 1.5 mg/dL (0.7-1.3); TOT PROT 6.9 g/dl (6.4-8.2)
--- NOTE | 2016-11-26 07:40 | PN ---
Physical Exam: SUBJECTIVE: Patient seen and examined c/o feeling hungry and diffuse abdominal pain in the RLQ. has had flatulence overnight and this morning. denies BM's overnight or this morning denies hx of renal or gallstones. denies chest pain, palpitations, vomiting, nausea, headache. OBJECTIVE: Vital Signs Period Temp Pulse Resp BP Sys/Mac Pulse Ox Last 24 Hr 98.4 F-100.1 F 63-75 18-28 112-160/74-94 92-96 GENERAL: The patient is awake, alert, in no acute distress. HEAD: Normal with no signs of trauma. EYES: PERRL, extraocular movements intact, sclera anicteric, conjunctiva clear. No ptosis. ENT: nares patent, oropharynx clear without exudates/lesions, poor dentition, hyperpigmented small mass under tongue - nonfriable/nontender. moist mucous membranes. NECK: Trachea midline, full range of motion, supple. ttp anteriorly. thick neck LUNGS: Breath sounds equal, quiet at bases, no wheezes, no crackles, no accessory muscle use. HEART: Regular rate and rhythm, S1, S2 without murmur, rub or gallop. ABDOMEN: Soft, obese, nondistended, normoactive bowel sounds, singh's positive , + rebound. ttp in LLQ, RLQ, epigastrium, denies flank pain and periumbilical pain. psoas's and obturator sign negative. no CVA tenderness. EXTREMITIES: 2+ pulses, warm, well-perfused, no edema. NEUROLOGICAL: Normal speech. facial symmetry. strength in handgrip, hip extension, dorsi/plantar flexion 5/5. Laboratory Results - last 24 hr 11/25/16 11/25/16 11/25/16 21:55 22:21 23:55 WBC 18.0 H RBC 4.83 Hgb 13.9 Hct 43.1 MCV 89.2 MCHC 32.3 RDW 13.5 Plt Count 111 L MPV 10.2 INR PTT (Actin FS) Sodium Potassium Chloride Carbon Dioxide Anion Gap BUN Creatinine Creat Clearance w eGFR Random Glucose Calcium Total Bilirubin AST ALT Alkaline Phosphatase Total Protein Albumin Ur Random Sodium Ur Random Potassium Ur Random Chloride Urine Creatinine Stool Occult Blood Negative Blood Type A POSITIVE Antibody Screen Positive H Antibody Identification No Result Required. Antigen Identification Y 11/25/16 11/26/1611/26/17 23:55 00:30 00:30 WBC RBC Hgb Hct MCV MCHC RDW Plt Count MPV INR Cancelled PTT (Actin FS) Cancelled Sodium Potassium Chloride Carbon Dioxide Anion Gap BUN Creatinine Creat Clearance w eGFR Random Glucose Calcium Total Bilirubin AST ALT Alkaline Phosphatase Total Protein Albumin Ur Random Sodium 41 Ur Random Potassium 46.3 Ur Random Chloride 57 Urine Creatinine 119.0 Stool Occult Blood Blood Type Antibody Screen Antibody Identification Antigen Identification 11/26/16 11/26/16 11/26/16 01:00 05:20 05:20 WBC 21.7 H RBC 4.44 Hgb 12.8 Hct 39.6 MCV 89.2 MCHC 32.4 RDW 13.2 Plt Count 109 L MPV 10.3 INR 20.20 H* 4.76 H* D PTT (Actin FS) 151.3 H D 68.1 H D Sodium Potassium Chloride Carbon Dioxide Anion Gap BUN Creatinine Creat Clearance w eGFR Random Glucose Calcium Total Bilirubin AST ALT Alkaline Phosphatase Total Protein Albumin Ur Random Sodium Ur Random Potassium Ur Random Chloride Urine Creatinine Stool Occult Blood Blood Type Antibody Screen Antibody Identification Antigen Identification 11/26/16 05:20 WBC RBC Hgb Hct MCV MCHC RDW Plt Count MPV INR PTT (Actin FS) Sodium 136 Potassium 4.1 Chloride 99 Carbon Dioxide 31 Anion Gap 6 L BUN 31 H Creatinine 1.5 H Creat Clearance w eGFR 47.90 Random Glucose 96 D Calcium 9.2 Total Bilirubin 0.6 AST 28 ALT 35 Alkaline Phosphatase 68 Total Protein 6.9 Albumin 3.6 Ur Random Sodium Ur Random Potassium Ur Random Chloride Urine Creatinine Stool Occult Blood Blood Type Antibody Screen Antibody Identification Antigen Identification Active Medications Generic Name Dose Route Start Last Admin Trade Name Freq PRN Reason Stop Dose Admin Amiodarone HCl 200 mg 11/26/16 10:00 Cordarone - PO DAILY [facility] Atorvastatin Calcium 20 mg 11/26/16 22:00 Lipitor - PO HS [facility] Chlorhexidine Gluconate 1 applic 11/26/16 22:00 Hibiclens For Decolonization - TP HS [facility] Folic Acid 1 mg 11/26/16 10:00 Folic Acid - PO DAILY [facility] Furosemide 20 mg 11/26/16 10:00 Lasix - PO DAILY [facility] Ceftriaxone Sodium 50 mls @ 100 mls/hr 11/26/16 10:00 Rocephin 1gm Ivpb (Pre-Docked) IVPB DAILY [facility] Insulin Aspart 1 vial 11/26/16 07:00 11/26/16 06:22 Novolog Vial Sliding Scale - SQ Not Given ACHS [facility] Protocol Levetiracetam 500 mg 11/26/16 10:00 Keppra Xr - PO DAILY [facility] Levothyroxine Sodium 75 mcg 11/26/16 07:00 11/26/16 06:24 Synthroid - PO 75 mcg AM AICHA Administration Lisinopril 5 mg 11/26/16 10:00 Prinivil PO DAILY [facility] Mupirocin 1 applic 11/26/16 10:00 Bactroban Ointment (For Decolonization) - NS 12/01/16 09:59 BID [facility] Olanzapine 2.5 mg 11/26/16 10:00 Zyprexa - PO DAILY [facility] Phytonadione 1 mg 11/26/16 10:00 Aqua Mephyton Injection - IVPB 11/29/16 09:59 DAILY [facility] Polyethylene Glycol 17 gm 11/25/16 22:39 Miralax (For Daily Use) - PO DAILY [facility] Senna/Docusate Sodium 1 tablet 11/25/16 22:45 11/26/16 01:27 Pericolace - PO 1 tablet BID AICHA Administration ASSESSMENT/PLAN: 61yr old man with hx of cardiac arrest complicated by coma in 2009, s/p AICD placement, hypothyroidism, CVA with neuro deficits, and DMII presents with abdominal pain, constipation and rectal bleeding found to have supratheraupatic INR. PCP: Dr. Bertram Brown GI abdominal CT without contrast: normal appendix, cholelithiasis without CBD and possible passage of left renal stone, perinephric and periureteral stranding - ultrasound for further investigation constipation - miralax po 17gm - pericolace 1 tablet po bid - had nonbloody BM this afternoon - abdominal xray without SBO, some air distended loops of small bowel Cardiovascular AICD placement, supratherapeutic INR due to OD warfarin - on warfarin 5mg po daily -- Bar Examiner Dr. Jasiel Sahni, will try to call tomorrow to clarify goal INR, cardiac history - s/p vitamin K and 2 units FFP's - FOBT neg continue home medications: Amiodarone 200mg po qdaily Lisinopril 5 mg 1tablet daily Furosemide 20mg 1 tablet daily carvedilol 6.25mg 1 tablet BID with meals Pravastatin 80mg tab 1 tablet daily Neurological levetiracetam 500mg tablet 3 tabs (1,500mg total) twice daily olanzapine 2.5 mg tablet qHS Head CT negative for acute process Neurologist: Dr. Darren Orozco Respiratory current everyday smoker, declined nicotine patch Renal elevated Cr, unknown baseline in setting of elevated BUN(ratio BUN: Cr 22) and diuretic use furosemide - multiple etiologies for elevated Cr, ur Na >20, likely intrinsic cause, given HTN and new onset DM possible medical renal disease, if Cr does not improve will continue further w/u, will defer to outpatient workup. - encourage oral hydration - repeat in the AM Infectious Disease elevated wbc, u/a with elevated white count and trace leuk esterase, urine cx pending rocephin 1 gm daily for possible UTI Hematology elevated wbc UTI is a possible source s/p 2units of FFP's and vitamin K - no overt signs of bleeding, h/h stable, continue to trend, no need for further reversal Endocrine DM II Metformin 850mg 1 tablet BID and glimepiride 2 mg 1 tablet BID - hold oral hypoglycemics NISS, BGM ACHS Hypothyroidism levothyroxine 75mcg daily DVT - conscern for GI bleed, SCD's for now Diet: diabetic low sodium Visit type - Emergency Visit Emergency Visit: No - New Patient This patient is new to me today: Yes Date on this admission: 11/26/16 - Critical Care Critical Care patient: No Total Critical Care Time (in minutes): 41 Critical Care Statement: The care of this patient involved high complexity decision making to prevent further life threatening deterioration of the patient 's condition and/or to evalute & treat vital organ system(s) failure or risk of failure.
--- NOTE | 2016-11-26 08:39 | EKG ---
Test Reason : Blood Pressure : / mmHG Vent. Rate : 064 BPM Atrial Rate : 064 BPM P-R Int : 240 ms QRS Dur : 086 ms QT Int : 392 ms P-R-T Axes : 003 -05 017 degrees QTc Int : 404 ms SINUS RHYTHM WITH 1ST DEGREE A-V BLOCK OTHERWISE NORMAL ECG NO PREVIOUS ECGS AVAILABLE Confirmed by JUANA BENOIT, RAMAN ([id number]) on 11/26/2016 8:38:56 AM Referred By: Confirmed By:RAMAN ARIAS MD
[2016-11-26] MEDS ORDERED: PHYTONADIONE 10 MG/1 ML AMP IVPB SCH (10:00)
[2016-11-26] MEDS ORDERED: LISINOPRIL 5 MG TABLET (FP) PO SCH (10:00)
[2016-11-26] MEDS ORDERED: ASPIRIN 81 MG CHEWABLE TABLETS PO SCH (10:00)
[2016-11-26] MEDS ORDERED: POLYETHYLENE GLYCOL 3350 119 GM BTL PO SCH (10:00)
[2016-11-26] MEDS ORDERED: FUROSEMIDE 20 MG TABLET (FP) PO SCH (10:00)
[2016-11-26] MEDS: FOLIC ACID 1 MG TABLET (FP) PO SCH (10:33)
[2016-11-26] MEDS: AMIODARONE HCL 200 MG TABLET (FP) PO SCH (10:33)
[2016-11-26] MEDS: POLYETHYLENE GLYCOL 3350 119 GM BTL PO SCH (10:35)
[2016-11-26] MEDS: levETIRAcetam XR 500 MG TAB PO SCH (10:36)
[2016-11-26] MEDS: CEFTRIAXONE 50 ML IVPB SCH (10:37)
[2016-11-26] MEDS: OLANZapine 2.5 MG TABLET PO SCH (10:37)
[2016-11-26] MEDS: MUPIROCIN 2% TOPICAL OINTMENT FOR DECOLONIZATION NS SCH ×2 (10:39→21:09)
--- NOTE | 2016-11-26 11:07 | PN ---
Teaching Attending Note Name of Resident: Darshana Rincon ATTENDING PHYSICIAN STATEMENT I saw and evaluated the patient. I reviewed the resident's note and discussed the case with the resident. I agree with the resident's findings and plan as documented. SUBJECTIVE: Patient seen and examined in the ICU. Awake and alert. Abdominal discomfort somewhat better. Still with hematuria noted in his urinal. No CP or SOB. Intake & Output 11/23/16 11/24/16 11/25/16 11/26/16 23:59 23:59 23:59 23:59 Intake Total 510 Output Total 500 Balance 10 Weight 255 lb 1.6 oz 253 lb 1.451 oz Last Vital Signs Temp Pulse Resp BP Pulse Ox 98.6 F 68 22 137/86 96 11/26/16 06:00 11/26/16 06:00 11/26/16 06:00 11/26/16 06:00 11/25/16 23:32 Active Medications Amiodarone HCl (Cordarone -) 200 mg PO DAILY [facility] Last Admin: 11/26/16 10:33 Dose: 200 mg Atorvastatin Calcium (Lipitor -) 20 mg PO HS [facility] Chlorhexidine Gluconate (Hibiclens For Decolonization -) 1 applic TP HS [facility] Folic Acid (Folic Acid -) 1 mg PO DAILY [facility] Last Admin: 11/26/16 10:33 Dose: 1 mg Furosemide (Lasix -) 20 mg PO DAILY [facility] Last Admin: 11/26/16 10:33 Dose: 20 mg Ceftriaxone Sodium (Rocephin 1gm Ivpb (Pre-Docked)) 50 mls @ 100 mls/hr IVPB DAILY [facility] Last Admin: 11/26/16 10:37 Dose: 100 mls/hr Insulin Aspart (Novolog Vial Sliding Scale -) 1 vial SQ ACHS [facility] PRN Reason: Protocol Last Admin: 11/26/16 06:22 Dose: Not Given Levetiracetam (Keppra Xr -) 500 mg PO DAILY [facility] Last Admin: 11/26/16 10:36 Dose: 500 mg Levothyroxine Sodium (Synthroid -) 75 mcg PO AM [facility] Last Admin: 11/26/16 06:24 Dose: 75 mcg Lisinopril (Prinivil) 5 mg PO DAILY [facility] Mupirocin (Bactroban Ointment (For Decolonization) -) 1 applic NS BID [facility] Stop: 12/01/16 09:59 Last Admin: 11/26/16 10:39 Dose: 1 applic Olanzapine (Zyprexa -) 2.5 mg PO DAILY [facility] Last Admin: 11/26/16 10:37 Dose: 2.5 mg Polyethylene Glycol (Miralax (For Daily Use) -) 17 gm PO DAILY [facility] Last Admin: 11/26/16 10:35 Dose: 17 gm Senna/Docusate Sodium (Pericolace -) 1 tablet PO BID [facility] Last Admin: 11/26/16 10:33 Dose: 1 tablet Constitutional: Yes: Awake and alert, NAD Eyes: Yes: WNL, PERRL HENT: Yes: Atraumatic, Normocephalic Neck: Yes: Supple Cardiovascular: Yes: Regular Rate and Rhythm, S1, S2 Respiratory: Yes: Diminished at the bases. No: Accessory Muscle Use Gastrointestinal: Yes: Soft, Abdomen, Obese, Distention, (+) Bowel Sounds. No: Melena ...Rectal Exam: Yes: WNL Renal/: Yes: WNL Breast(s): Yes: WNL Musculoskeletal: Yes: WNL Extremities: Yes: WNL Edema: Yes Edema: LUE: Trace, RUE: Trace, LLE: 1+, RLE: 1+ Peripheral Pulses WNL: Yes Integumentary: Yes: WNL Neurological: Yes: WNL, Alert, Oriented, Non-focal ...Motor Strength: WNL Psychiatric: Yes: WNL Labs: Laboratory Results - last 24 hr 11/25/16 11/25/16 11/25/16 16:35 16:35 16:35 WBC 24.0 H RBC 5.36 Hgb 15.4 Hct 48.1 MCV 89.8 MCHC 32.1 RDW 13.5 Plt Count 138 MPV 10.5 Neutrophils % 34.0 L Lymphocytes % 60.0 H Monocytes % 4.0 Differential Comment Manual diff done Reactive Lymphocytes 2 Platelet Estimate Adequate Morphology Comment Slide scanned INR > 15.00 H* PTT (Actin FS) Fibrinogen Sodium 138 Potassium 4.5 Chloride 100 Carbon Dioxide 26 Anion Gap 12 BUN 29 H Creatinine 1.6 H Creat Clearance w eGFR 44.46 Random Glucose 126 H Calcium 9.7 Total Bilirubin 0.6 AST 28 ALT 37 Alkaline Phosphatase 77 Creatine Kinase 335 H Creatine Kinase Index 0.5 CK-MB (CK-2) 1.820 CK-MB (CK-2) Rel Index Troponin I < 0.02 B-Natriuretic Peptide Total Protein 8.3 H Albumin 3.8 Lipase 227 Urine Color Urine Appearance Urine pH Ur Specific [place] Urine Protein Urine Glucose (UA) Urine Ketones Urine Blood Urine Nitrite Urine Bilirubin Urine Urobilinogen Ur Leukocyte Esterase Urine RBC Urine WBC Ur Epithelial Cells Urine Mucus Ur Random Sodium Ur Random Potassium Ur Random Chloride Urine Creatinine Stool Occult Blood Blood Type Antibody Screen Antibody Identification Antigen Identification 11/25/16 11/25/16 11/25/16 16:35 16:35 17:50 WBC RBC Hgb Hct MCV MCHC RDW Plt Count MPV Neutrophils % Lymphocytes % Monocytes % Differential Comment Reactive Lymphocytes Platelet Estimate Morphology Comment INR PTT (Actin FS) Fibrinogen 462.0 Sodium Potassium Chloride Carbon Dioxide Anion Gap BUN Creatinine Creat Clearance w eGFR Random Glucose Calcium Total Bilirubin AST ALT Alkaline Phosphatase Creatine Kinase Creatine Kinase Index CK-MB (CK-2) CK-MB (CK-2) Rel Index Cancelled Troponin I B-Natriuretic Peptide 56.70 Total Protein Albumin Lipase Urine Color Urine Appearance Urine pH Ur Specific [place] Urine Protein Urine Glucose (UA) Urine Ketones Urine Blood Urine Nitrite Urine Bilirubin Urine Urobilinogen Ur Leukocyte Esterase Urine RBC Urine WBC Ur Epithelial Cells Urine Mucus Ur Random Sodium Ur Random Potassium Ur Random Chloride Urine Creatinine Stool Occult Blood Blood Type Antibody Screen Antibody Identification Antigen Identification 11/25/16 11/25/16 11/25/16 17:55 17:55 18:20 WBC RBC Hgb Hct MCV MCHC RDW Plt Count MPV Neutrophils % Lymphocytes % Monocytes % Differential Comment Reactive Lymphocytes Platelet Estimate Morphology Comment INR < 15.00 H* PTT (Actin FS) > 400.0 H Fibrinogen Sodium Potassium Chloride Carbon Dioxide Anion Gap BUN Creatinine Creat Clearance w eGFR Random Glucose Calcium Total Bilirubin AST ALT Alkaline Phosphatase Creatine Kinase Creatine Kinase Index CK-MB (CK-2) CK-MB (CK-2) Rel Index Troponin I B-Natriuretic Peptide Total Protein Albumin Lipase Urine Color Red Urine Appearance Cloudy Urine pH 6.0 Ur Specific [place] 1.020 Urine Protein 2+ H Urine Glucose (UA) Negative Urine Ketones Negative Urine Blood 2+ H Urine Nitrite Negative Urine Bilirubin Negative Urine Urobilinogen Negative Ur Leukocyte Esterase Trace H Urine RBC 3395 Urine WBC 89 Ur Epithelial Cells Few Urine Mucus Many Ur Random Sodium Ur Random Potassium Ur Random Chloride Urine Creatinine Stool Occult Blood Blood Type A POSITIVE Antibody Screen Positive H Antibody Identification See comment Antigen Identification Y 11/25/16 11/25/16 11/25/16 21:55 22:21 23:55 WBC 18.0 H RBC 4.83 Hgb 13.9 Hct 43.1 MCV 89.2 MCHC 32.3 RDW 13.5 Plt Count 111 L MPV 10.2 Neutrophils % Lymphocytes % Monocytes % Differential Comment Reactive Lymphocytes Platelet Estimate Morphology Comment INR PTT (Actin FS) Fibrinogen Sodium Potassium Chloride Carbon Dioxide Anion Gap BUN Creatinine Creat Clearance w eGFR Random Glucose Calcium Total Bilirubin AST ALT Alkaline Phosphatase Creatine Kinase Creatine Kinase Index CK-MB (CK-2) CK-MB (CK-2) Rel Index Troponin I B-Natriuretic Peptide Total Protein Albumin Lipase Urine Color Urine Appearance Urine pH Ur Specific [place] Urine Protein Urine Glucose (UA) Urine Ketones Urine Blood Urine Nitrite Urine Bilirubin Urine Urobilinogen Ur Leukocyte Esterase Urine RBC Urine WBC Ur Epithelial Cells Urine Mucus Ur Random Sodium Ur Random Potassium Ur Random Chloride Urine Creatinine Stool Occult Blood Negative Blood Type A POSITIVE Antibody Screen Positive H Antibody Identification No Result Required. Antigen Identification Y 11/25/16 11/26/16 11/26/16 23:55 00:30 00:30 WBC RBC Hgb Hct MCV MCHC RDW Plt Count MPV Neutrophils % Lymphocytes % Monocytes % Differential Comment Reactive Lymphocytes Platelet Estimate Morphology Comment INR Cancelled PTT (Actin FS) Cancelled Fibrinogen Sodium Potassium Chloride Carbon Dioxide Anion Gap BUN Creatinine Creat Clearance w eGFR Random Glucose Calcium Total Bilirubin AST ALT Alkaline Phosphatase Creatine Kinase Creatine Kinase Index CK-MB (CK-2) CK-MB (CK-2) Rel Index Troponin I B-Natriuretic Peptide Total Protein Albumin Lipase Urine Color Urine Appearance Urine pH Ur Specific [place] Urine Protein Urine Glucose (UA) Urine Ketones Urine Blood Urine Nitrite Urine Bilirubin Urine Urobilinogen Ur Leukocyte Esterase Urine RBC Urine WBC Ur Epithelial Cells Urine Mucus Ur Random Sodium 41 Ur Random Potassium 46.3 Ur Random Chloride 57 Urine Creatinine 119.0 Stool Occult Blood Blood Type Antibody Screen Antibody Identification Antigen Identification 11/26/16 11/26/16 11/26/16 01:00 05:20 05:20 WBC 21.7 H RBC 4.44 Hgb 12.8 Hct 39.6 MCV 89.2 MCHC 32.4 RDW 13.2 Plt Count 109 L MPV 10.3 Neutrophils % Lymphocytes % Monocytes % Differential Comment Reactive Lymphocytes Platelet Estimate Morphology Comment INR 20.20 H* 4.76 H* D PTT (Actin FS) 151.3 H D 68.1 H D Fibrinogen Sodium Potassium Chloride Carbon Dioxide Anion Gap BUN Creatinine Creat Clearance w eGFR Random Glucose Calcium Total Bilirubin AST ALT Alkaline Phosphatase Creatine Kinase Creatine Kinase Index CK-MB (CK-2) CK-MB (CK-2) Rel Index Troponin I B-Natriuretic Peptide Total Protein Albumin Lipase Urine Color Urine Appearance Urine pH Ur Specific [place] Urine Protein Urine Glucose (UA) Urine Ketones Urine Blood Urine Nitrite Urine Bilirubin Urine Urobilinogen Ur Leukocyte Esterase Urine RBC Urine WBC Ur Epithelial Cells Urine Mucus Ur Random Sodium Ur Random Potassium Ur Random Chloride Urine Creatinine Stool Occult Blood Blood Type Antibody Screen Antibody Identification Antigen Identification 11/26/16 05:20 WBC RBC Hgb Hct MCV MCHC RDW Plt Count MPV Neutrophils % Lymphocytes % Monocytes % Differential Comment Reactive Lymphocytes Platelet Estimate Morphology Comment INR PTT (Actin FS) Fibrinogen Sodium 136 Potassium 4.1 Chloride 99 Carbon Dioxide 31 Anion Gap 6 L BUN 31 H Creatinine 1.5 H Creat Clearance w eGFR 47.90 Random Glucose 96 D Calcium 9.2 Total Bilirubin 0.6 AST 28 ALT 35 Alkaline Phosphatase 68 Creatine Kinase Creatine Kinase Index CK-MB (CK-2) CK-MB (CK-2) Rel Index Troponin I B-Natriuretic Peptide Total Protein 6.9 Albumin 3.6 Lipase Urine Color Urine Appearance Urine pH Ur Specific [place] Urine Protein Urine Glucose (UA) Urine Ketones Urine Blood Urine Nitrite Urine Bilirubin Urine Urobilinogen Ur Leukocyte Esterase Urine RBC Urine WBC Ur Epithelial Cells Urine Mucus Ur Random Sodium Ur Random Potassium Ur Random Chloride Urine Creatinine Stool Occult Blood Blood Type Antibody Screen Antibody Identification Antigen Identification Problem List - Problems (1) Elevated INR (international normalized ratio) due to prior anticoagulant medication ingestion Code(s): R78.89 - FINDING OF OTH SUBSTANCES, NOT NORMALLY FOUND IN BLOOD (2) Hematuria Code(s): R31.9 - HEMATURIA, UNSPECIFIED (3) Leukocytosis Code(s): D72.829 - ELEVATED WHITE BLOOD CELL COUNT, UNSPECIFIED Qualifiers: Leukocytosis type: other Qualified Code(s): D72.828 - Other elevated white blood cell count (4) UTI (urinary tract infection) Code(s): N39.0 - URINARY TRACT INFECTION, SITE NOT SPECIFIED Qualifiers: Urinary tract infection type: acute cystitis Hematuria presence: with hematuria Qualified Code(s): N30.01 - Acute cystitis with hematuria Assessment/Plan Supratherapeutic INR due to excessive intake Hematuria CAD Cardiac arrest AMI DM Constipation Epistaxis . UTI Would hold further reversal agents Follow INR There is no clear indication to hold PO Coumadin as his CVA risk is significant O2 as needed PO as needed IVF Noted empiric Rocephin Strict I&O Normal transfusion thresholds Dr William Critical care time spent in reviewing chart, evaluating patient and formulating plan 40 min
[2016-11-26] MEDS ORDERED: MAGNESIUM HYDROX 2400MG/30ML ORAL SUSPENSION 30 ML CUP PO ONE ×2 (12:01→15:45)
--- NOTE | 2016-11-26 12:14 | PN ---
Physical Exam: SUBJECTIVE: Patient seen and examined. He says he does not feel well, he "hasn' t gone to the bathroom", he feels weak and cant sit up or roll over. OBJECTIVE: Vital Signs Period Temp Pulse Resp BP Sys/Mac Pulse Ox Last 24 Hr 98.4 F-100.1 F 63-75 18-28 112-160/69-94 92-96 PE Neuro: alert, arousable, mental slowing HEENT: healed trach hole Pulm: CTAB, distant CV: s1 s2 rrr no mrg Abd: diffuse abd pain, epigastric tenderness to palpation, mild distention Ext: no le edema, left anterior skin scab dried CBCD WBC 21.7 K/mm3 (4.0-10.0) H 11/26/16 05:20 RBC 4.44 M/mm3 (4.00-5.60) 11/26/16 05:20 Hgb 12.8 GM/dL (11.7-16.9) 11/26/16 05:20 Hct 39.6 % (35.4-49) 11/26/16 05:20 MCV 89.2 fl (80-96) 11/26/16 05:20 MCHC 32.4 g/dl (32.0-35.9) 11/26/16 05:20 RDW 13.2 % (11.9-15.9) 11/26/16 05:20 Plt Count 109 K/MM3 (134-434) L 11/26/16 05:20 MPV 10.3 fl (7.5-11.1) 11/26/16 05:20 CMP Sodium 136 mmol/L (136-145) 11/26/16 05:20 Potassium 4.1 mmol/L (3.5-5.1) 11/26/16 05:20 Chloride 99 mmol/L (98-107) 11/26/16 05:20 Carbon Dioxide 31 mmol/L (21-32) 11/26/16 05:20 Anion Gap 6 (8-16) L 11/26/16 05:20 BUN 31 mg/dL (7-18) H 11/26/16 05:20 Creatinine 1.5 mg/dL (0.7-1.3) H 11/26/16 05:20 Creat Clearance w eGFR 47.90 (>60) 11/26/16 05:20 Calcium 9.2 mg/dL (8.5-10.1) 11/26/16 05:20 Total Bilirubin 0.6 mg/dL (0.2-1.0) 11/26/16 05:20 AST 28 U/L (15-37) 11/26/16 05:20 ALT 35 U/L (12-78) 11/26/16 05:20 Alkaline Phosphatase 68 U/L (45-117) 11/26/16 05:20 Total Protein 6.9 g/dl (6.4-8.2) 11/26/16 05:20 Albumin 3.6 g/dl (3.4-5.0) 11/26/16 05:20 11/25/16 11/26/16 17:50 05:20 INR 4.76 H* D PTT (Actin FS) 68.1 H D Fibrinogen 462.0 Active Medications Generic Name Dose Route Start Last Admin Trade Name Freq PRN Reason Stop Dose Admin Amiodarone HCl 200 mg 11/26/16 10:00 11/26/16 10:33 Cordarone - PO 200 mg DAILY [facility] Administration Atorvastatin Calcium 20 mg 11/26/16 22:00 Lipitor - PO HS [facility] Chlorhexidine Gluconate 1 applic 11/26/16 22:00 Hibiclens For Decolonization - TP HS [facility] Folic Acid 1 mg 11/26/16 10:00 11/26/16 10:33 Folic Acid - PO 1 mg DAILY [facility] Administration Furosemide 20 mg 11/26/16 10:00 11/26/16 10:33 Lasix - PO 20 mg DAILY [facility] Administration Ceftriaxone Sodium 50 mls @ 100 mls/hr 11/26/16 10:00 11/26/16 10:37 Rocephin 1gm Ivpb (Pre-Docked) IVPB 100 mls/hr DAILY [facility] Administration Insulin Aspart 1 vial 11/26/16 07:00 11/26/16 06:22 Novolog Vial Sliding Scale - SQ Not Given ACHS [facility] Protocol Levetiracetam 500 mg 11/26/16 10:00 11/26/16 10:36 Keppra Xr - PO 500 mg DAILY [facility] Administration Levothyroxine Sodium 75 mcg 11/26/16 07:00 11/26/16 06:24 Synthroid - PO 75 mcg AM [facility] Administration Lisinopril 5 mg 11/26/16 10:00 Prinivil PO DAILY [facility] Mupirocin 1 applic 11/26/16 10:00 11/26/16 10:39 Bactroban Ointment (For Decolonization) - NS 12/01/16 09:59 1 applic BID [facility] Administration Olanzapine 2.5 mg 11/26/16 10:00 11/26/16 10:37 Zyprexa - PO 2.5 mg DAILY [facility] Administration Polyethylene Glycol 17 gm 11/25/16 22:39 11/26/16 10:35 Miralax (For Daily Use) - PO 17 gm DAILY [facility] Administration Senna/Docusate Sodium 1 tablet 11/25/16 22:45 11/26/16 10:33 Pericolace - PO 1 tablet BID [facility] Administration Imaging: - CT Head: no signs of bleeding Assessment: 61 year old male with PMHx of cardiac arrest, 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 Plan: 1. Supra therapeutic INR - s/p 10mg IV vit k - s/p 2units FFP - Hold further reversing agents, INR 4 today - Recheck INR @ 1400 - If continues to lower will start heparin gtt - Continue HS dose coumadin - Monitor hgb, now stable 2. Diffuse abd pain vs constipation - CTAP with cholelithiasis and sludge, however no ductal dilation or gb thickening, possible passage of left renal stone due to mild left perinephric/ periureteral stranding, mild prostate enlargement - Obtain bladder/pelvic US for BPH/prostatisis - Awaiting XRAY upright/flat plate - Give x1 dose milk of magnesia 3. ? hx of A fib, hx of CVA - Resume coreg 6.25 BID - Amiodarone 200mg daily - Coumadin 5mg hs - Placed call to daughter, no answer, will try again 3. UTI - Urine cx pending - Ceftrixone (day 2) 4. TUNG on ?CKD - Unknown baseline, urine studies wnl - Dose have proteinuria - Hold JUANITA, lasix given today, hold tomorrow - Consider gentle fluids 5. DM II - ISS, BGM ACHS 6. HTN - Meds above 7. HLD - Lipitor 20mg HS 8. Seizures, empiric 2/2 CVA ? - Keppra level therapeutic - Continue keppra 500mg daily 9. Bipolar - Zyprexa daily 10. Hypothyroid - Synthroid 75mcg daily 11. Urinary retention - Bladder US noted urinary retention, however no post void residual measurement taken - Per RN pt is freely voiding ~1000cc today - Will attempt bedside bladder scan Visit type - Emergency Visit Emergency Visit: Yes ED Registration Date: 11/25/16 Care time: The patient presented to the Emergency Department on the above date and was hospitalized for further evaluation of their emergent condition. - New Patient This patient is new to me today: Yes Date on this admission: 11/26/16 - Critical Care Critical Care patient: Yes Total Critical Care Time (in minutes): 35 Critical Care Statement: The care of this patient involved high complexity decision making to prevent further life threatening deterioration of the patient 's condition and/or to evalute & treat vital organ system(s) failure or risk of failure.
[2016-11-26 12:58] LABS: MCH 29.2 pg (25.7-33.7); MCHC 32.8 g/dl (32.0-35.9); MEAN CELL VOLUME 89.1 fl (80-96); PLATELET COUNT 103 K/MM3 (134-434); RDW 13.1 % (11.9-15.9); WHITE BLOOD COUNT 16.7 K/mm3 (4.0-10.0)
[2016-11-26 15:47] LABS: INR 3.47 (0.82-1.09); PROTHROMBIN TIME (PATIENT) 39.1 SEC (9.98-11.88)
[2016-11-26] MEDS: SODIUM CHLORIDE 1,000 ML IV SCH (17:25)
[2016-11-26] MEDS ORDERED: WARFARIN NA 5 MG TABLET (UD) PO SCH (18:00)
[2016-11-26] MEDS: CARVEDILOL 6.25 MG TABLET (FP) PO SCH (21:09)
[2016-11-26] MEDS ORDERED: CHLORHEXIDINE GLUCONATE 4% CLEANSER FOR DECOLONIZATION TP SCH (22:00)
[2016-11-26] MEDS ORDERED: ATORVASTATIN CA 20 MG TABLET (FP) PO SCH (22:00)
[2016-11-27] MEDS: SODIUM CHLORIDE 1,000 ML IV SCH (02:46)
[2016-11-27] MEDS: LEVOTHYROXINE NA 75 MCG TABLET (FP) PO SCH (06:07)
[2016-11-27] MEDS: INSULIN SLIDING SCALE (NOVOLOG) 1 VIAL SQ SCH ×4 (06:07→22:32)
[2016-11-27 06:20] LABS: MCH 28.7 pg (25.7-33.7); MCHC 32.1 g/dl (32.0-35.9); MEAN CELL VOLUME 89.5 fl (80-96); MEAN PLT VOLUME 10.5 fl (7.5-11.1); PLATELET COUNT 112 K/MM3 (134-434); RDW 13.3 % (11.9-15.9); WHITE BLOOD COUNT 21.1 K/mm3 (4.0-10.0)
[2016-11-27 06:39] LABS: INR 2.78 (0.82-1.09); PROTHROMBIN TIME (PATIENT) 31.2 SEC (9.98-11.88)
[2016-11-27 06:52] LABS: CALCIUM 8.7 mg/dL (8.5-10.1); COCKROFT - GAULT 91.98; CREATININE 1.4 mg/dL (0.7-1.3); MAGNESIUM 2.5 mg/dL (1.8-2.4)
--- NOTE | 2016-11-27 07:27 | PN ---
Physical Exam: SUBJECTIVE: Patient seen and examined. continues to complain of abdominal pain, similar to yesterday. diffuse, nonpositional, worse with palpation. He had some pain relief after his BM yesterday. no BM today. denies chest pain, vomiting, dysuria, fevers, chills, headache. OBJECTIVE: Vital Signs Period Temp Pulse Resp BP Sys/Mac Pulse Ox Last 24 Hr 98 F-99 F 65-78 16-25 102-137/66-85 95-95 GENERAL: The patient is awake, alert, in no acute distress. HEAD: Normal with no signs of trauma. EYES: PERRL, extraocular movements intact, sclera anicteric, conjunctiva clear. No ptosis. ENT: nares patent, oropharynx clear without exudates/lesions, poor dentition/ halitosis, hyperpigmented small mass under tongue - nonfriable/nontender. moist mucous membranes. NECK: Trachea midline, full range of motion, supple. thick neck, nontender LUNGS: Breath sounds equal, quiet at bases, no wheezes, no crackles, no accessory muscle use. HEART: Regular rate and rhythm, S1, S2 without murmur, rub or gallop. ABDOMEN: Soft, obese, distended, normoactive bowel sounds, diffusely tender to palpation +gaurding, no rebound, denies flank pain. EXTREMITIES: 2+ pulses, warm, well-perfused, no edema. NEUROLOGICAL: Normal speech. facial symmetry. strength in handgrip, hip extension, dorsi/plantar flexion 5/5. Laboratory Results - last 24 hr 11/26/16 11/26/16 11/26/16 05:25 12:16 12:30 WBC 16.7 H Corrected WBC (auto) RBC 4.49 Hgb 13.1 Hct 40.0 MCV 89.1 MCHC 32.8 RDW 13.1 Plt Count 103 L MPV 10.0 Neutrophils % Lymphocytes % Monocytes % Eosinophils % Basophils % Differential Comment Smudge Cells Platelet Estimate Platelet Comment RBC Morphology INR Sodium Potassium Chloride Carbon Dioxide Anion Gap BUN Creatinine POC Glucometer [phone] Random Glucose Calcium Magnesium 11/26/16 11/26/16 11/26/16 14:20 14:20 16:51 WBC Cancelled Corrected WBC (auto) Cancelled RBC Cancelled Hgb Cancelled Hct Cancelled MCV Cancelled MCHC Cancelled RDW Cancelled Plt Count Cancelled MPV Cancelled Neutrophils % Cancelled Lymphocytes % Cancelled Monocytes % Cancelled Eosinophils % Cancelled Basophils % Cancelled Differential Comment Cancelled Smudge Cells Cancelled Platelet Estimate Cancelled Platelet Comment Cancelled RBC Morphology Cancelled INR 3.47 H Sodium Potassium Chloride Carbon Dioxide Anion Gap BUN Creatinine POC Glucometer [phone] Random Glucose Calcium Magnesium 11/26/16 11/27/16 11/27/16 21:30 05:20 05:20 WBC 21.1 H Corrected WBC (auto) RBC 4.21 Hgb 12.1 Hct 37.7 MCV 89.5 MCHC 32.1 RDW 13.3 Plt Count 112 L MPV 10.5 Neutrophils % Y Lymphocytes % Y Monocytes % Eosinophils % Basophils % Differential Comment Smudge Cells Platelet Estimate Platelet Comment RBC Morphology INR 2.78 H Sodium Potassium Chloride Carbon Dioxide Anion Gap BUN Creatinine POC Glucometer [phone] Random Glucose Calcium Magnesium 11/27/16 05:20 WBC Corrected WBC (auto) RBC Hgb Hct MCV MCHC RDW Plt Count MPV Neutrophils % Lymphocytes % Monocytes % Eosinophils % Basophils % Differential Comment Smudge Cells Platelet Estimate Platelet Comment RBC Morphology INR Sodium 140 Potassium 4.3 Chloride 100 Carbon Dioxide 33 H Anion Gap 7 L BUN 24 H D Creatinine 1.4 H POC Glucometer Random Glucose 106 Calcium 8.7 Magnesium 2.5 H Active Medications Generic Name Dose Route Start Last Admin Trade Name Freq PRN Reason Stop Dose Admin Amiodarone HCl 200 mg 11/26/16 10:00 11/26/16 10:33 Cordarone - PO 200 mg DAILY AICHA Administration Atorvastatin Calcium 20 mg 11/26/16 22:00 11/26/16 21:09 Lipitor - PO 20 mg HS AICHA Administration Carvedilol 6.25 mg 11/26/16 22:00 11/26/16 21:09 Coreg - PO 6.25 mg BID AICHA Administration Chlorhexidine Gluconate 1 applic 11/26/16 22:00 11/26/16 21:30 Hibiclens For Decolonization - TP 1 applic HS AICHA Administration Folic Acid 1 mg 11/26/16 10:00 11/26/16 10:33 Folic Acid - PO 1 mg DAILY AICHA Administration Furosemide 20 mg 11/26/16 10:00 11/26/16 10:33 Lasix - PO 20 mg DAILY AICHA Administration Ceftriaxone Sodium 50 mls @ 100 mls/hr 11/26/16 10:00 11/26/16 10:37 Rocephin 1gm Ivpb (Pre-Docked) IVPB 100 mls/hr DAILY AICHA Administration Sodium Chloride 1,000 mls @ 75 mls/hr 11/26/16 17:00 11/27/16 02:46 Normal Saline - IV 75 mls/hr ASDIR AICHA Administration Insulin Aspart 1 vial 11/26/16 07:00 11/27/16 06:07 Novolog Vial Sliding Scale - SQ Not Given ACHS [facility] Protocol Levetiracetam 500 mg 11/26/16 10:00 11/26/16 10:36 Keppra Xr - PO 500 mg DAILY AICHA Administration Levothyroxine Sodium 75 mcg 11/26/16 07:00 11/27/16 06:07 Synthroid - PO 75 mcg AM AICHA Administration Lisinopril 5 mg 11/26/16 10:00 Prinivil PO DAILY AICHA Mupirocin 1 applic 11/26/16 10:00 11/26/16 21:09 Bactroban Ointment (For Decolonization) - NS 12/01/16 09:59 1 applic BID AICHA Administration Olanzapine 2.5 mg 11/26/16 10:00 11/26/16 10:37 Zyprexa - PO 2.5 mg DAILY AICHA Administration Polyethylene Glycol 17 gm 11/25/16 22:39 11/26/16 10:35 Miralax (For Daily Use) - PO 17 gm DAILY AICHA Administration Senna/Docusate Sodium 1 tablet 11/25/16 22:45 11/26/16 21:09 Pericolace - PO 1 tablet BID AICHA Administration Warfarin Sodium 5 mg 11/26/16 18:00 11/26/16 18:18 Coumadin - PO 5 mg DAILY@1800 AICHA Administration ASSESSMENT/PLAN: 61yr old man with hx of cardiac arrest complicated by coma in 2009, s/p AICD placement, hypothyroidism, CVA with neuro deficits, and DMII presents with abdominal pain, constipation and rectal bleeding found to have supratheraupatic INR. PCP: Dr. Bertram Brown: had met the patient once,pt has Afib on amiodarone and warfarin, hx of anoxic brain injury when cardiac arrest (treated with keppra ) and hx of psychosis post anoxic brain injury (treated with olanzapine). No longer on metformin, on Jentadueta, was referred to Dr. El in [place] to f/u regarding new dx of DM but patient does not always have the ability to travel for appointments. Revenue Liaison: Dr. Sahni ([phone]): [employer] AICD secondary prevention for cardiac arrest, seizure d/o post-cardiac arrest, afib on coumadin, current smoker and drinker, no INR since July, nuclear stress in Aug 2015 no ischemia , normal ejection fraction on echo. hx of DVT. INR goal of 2.0-3.0. hx of Heparin induced thrombcytopenia - do not give patient heparin. patient has had poor compliance and physician follow-up since he moved in with his daughter. GI abdominal CT without contrast: normal appendix, cholelithiasis without CBD and possible passage of left renal stone, perinephric and periureteral stranding constipation - improving - miralax po 17gm - pericolace 1 tablet po bid - had nonbloody BM this afternoon, it was dry and large - recommend GI consult for further evaluation; Dr. Brock Cardiovascular AICD placement, supratherapeutic INR due to OD warfarin - on warfarin 5mg po daily - s/p vitamin K and 2 units FFP's - FOBT neg continue home medications: Amiodarone 200mg po qdaily Lisinopril 5 mg 1tablet daily Furosemide 20mg 1 tablet daily carvedilol 6.25mg 1 tablet BID with meals Pravastatin 80mg tab 1 tablet daily Neurological levetiracetam 500mg tablet 3 tabs (1,500mg total) twice daily olanzapine 2.5 mg tablet qHS Head CT negative for acute process Neurologist: Dr. Darren Orozco Respiratory current everyday smoker, declined nicotine patch Renal elevated Cr, unknown baseline in setting of elevated BUN(ratio BUN: Cr 22) and diuretic use; furosemide - multiple etiologies for elevated Cr, ur Na >20, likely intrinsic cause, given HTN and new onset DM possible medical renal disease, if Cr does not improve will continue further w/u, for now will defer to outpatient workup. - encourage oral hydration - IVF NS @ 75ml/hr Infectious Disease elevated wbc, u/a with elevated white count and trace leuk esterase, urine cx with no growth rocephin 1 gm daily - dc'd as no NGTD in urine Hematology rising wbc, etiology to be determined s/p 2units of FFP's and vitamin K - no overt signs of bleeding, h/h stable, continue to trend, no need for further reversal Endocrine DM II Metformin 850mg 1 tablet BID, as per PCP med list, pt is no longer on Metformin , on Jentadueta and glimepiride 2 mg 1 tablet BID - hold oral hypoglycemics NISS, BGM ACHS Hypothyroidism levothyroxine 75mcg daily DVT - SCD's for now, on warfarin, 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 Visit type - Emergency Visit Emergency Visit: No - New Patient This patient is new to me today: No - Critical Care Critical Care patient: Yes Total Critical Care Time (in minutes): 36 Critical Care Statement: The care of this patient involved high complexity decision making to prevent further life threatening deterioration of the patient 's condition and/or to evalute & treat vital organ system(s) failure or risk of failure.
[2016-11-27 08:56] LABS: PLATELET ESTIMATE DECREASED (NORMAL); SMUDGE CELLS MANY
[2016-11-27] MEDS ORDERED: PT OWN MED DRAWER 7, Y5N ONE ×2 (09:21→16:46)
[2016-11-27] MEDS: AMIODARONE HCL 200 MG TABLET (FP) PO SCH (09:23)
[2016-11-27] MEDS: levETIRAcetam XR 500 MG TAB PO SCH (09:24)
[2016-11-27] MEDS: FOLIC ACID 1 MG TABLET (FP) PO SCH (09:24)
[2016-11-27] MEDS: POLYETHYLENE GLYCOL 3350 119 GM BTL PO SCH (09:26)
[2016-11-27] MEDS: CARVEDILOL 6.25 MG TABLET (FP) PO SCH ×2 (09:27→22:22)
[2016-11-27] MEDS: SENNOSIDES/DOCUSATE COMBO (SENNA PLUS) TABLET (UD) PO SCH (09:29)
[2016-11-27] MEDS: OLANZapine 2.5 MG TABLET PO SCH (09:30)
[2016-11-27] MEDS: CEFTRIAXONE 50 ML IVPB SCH (09:31)
[2016-11-27] MEDS: MUPIROCIN 2% TOPICAL OINTMENT FOR DECOLONIZATION NS SCH (09:45)
--- NOTE | 2016-11-27 12:14 | PN ---
Teaching Attending Note Name of Resident: Darshana Rincon ATTENDING PHYSICIAN STATEMENT I saw and evaluated the patient. I reviewed the resident's note and discussed the case with the resident. I agree with the resident's findings and plan as documented. SUBJECTIVE: Pt seen and examined in the ICU. Still with some abdominal pain. Had bowel movement yesterday. No nausea, vomiting. No fevers or chills. Tolerating PO. OBJECTIVE: Last Vital Signs Temp Pulse Resp BP Pulse Ox 98.8 F 66 114 H 114/72 94 L 11/27/16 06:18 11/27/16 10:00 11/27/16 10:00 11/27/16 10:00 11/27/16 07:40 Intake & Output 11/24/16 11/25/16 11/26/16 11/27/16 23:59 23:59 23:59 23:59 Intake Total 2030 1200 Output Total 1500 1000 Balance 530 200 Weight 255 lb 1.6 oz 253 lb 1.451 oz 252 lb 6 oz Gen: NAD at rest Heart: RRR Lung: decreased breath sounds at the bases Abd: soft, mild TTP diffusely, no rebound Ext: no edema CBC, BMP 11/27/16 05:20 11/27/16 05:20 Active Medications Amiodarone HCl (Cordarone -) 200 mg PO DAILY [facility] Last Admin: 11/27/16 09:23 Dose: 200 mg Atorvastatin Calcium (Lipitor -) 20 mg PO HS [facility] Last Admin: 11/26/16 21:09 Dose: 20 mg Carvedilol (Coreg -) 6.25 mg PO BID [facility] Last Admin: 11/27/16 09:27 Dose: 6.25 mg Chlorhexidine Gluconate (Hibiclens For Decolonization -) 1 applic TP [facility] Last Admin: 11/26/16 21:30 Dose: 1 applic Folic Acid (Folic Acid -) 1 mg PO DAILY [facility] Last Admin: 11/27/16 09:24 Dose: 1 mg Furosemide (Lasix -) 20 mg PO DAILY [facility] Last Admin: 11/26/16 10:33 Dose: 20 mg Ceftriaxone Sodium (Rocephin 1gm Ivpb (Pre-Docked)) 50 mls @ 100 mls/hr IVPB DAILY [facility] Last Admin: 11/27/16 09:31 Dose: 100 mls/hr Sodium Chloride (Normal Saline -) 1,000 mls @ 75 mls/hr IV ASDIR [facility] Last Admin: 11/27/16 02:46 Dose: 75 mls/hr Insulin Aspart (Novolog Vial Sliding Scale -) 1 vial SQ ACHS [facility] PRN Reason: Protocol Last Admin: 11/27/16 11:41 Dose: 2 units Levetiracetam (Keppra Xr -) 500 mg PO DAILY [facility] Last Admin: 11/27/16 09:24 Dose: 500 mg Levothyroxine Sodium (Synthroid -) 75 mcg PO AM [facility] Last Admin: 11/27/16 06:07 Dose: 75 mcg Lisinopril (Prinivil) 5 mg PO DAILY [facility] Last Admin: 11/27/16 09:24 Dose: 5 mg Mupirocin (Bactroban Ointment (For Decolonization) -) 1 applic NS BID [facility] Stop: 12/01/16 09:59 Last Admin: 11/26/16 21:09 Dose: 1 applic Olanzapine (Zyprexa -) 2.5 mg PO DAILY [facility] Last Admin: 11/27/16 09:30 Dose: 2.5 mg Polyethylene Glycol (Miralax (For Daily Use) -) 17 gm PO DAILY [facility] Last Admin: 11/27/16 09:26 Dose: 17 gm Senna/Docusate Sodium (Pericolace -) 1 tablet PO BID [facility] Last Admin: 11/27/16 09:29 Dose: 1 tablet Warfarin Sodium (Coumadin -) 5 mg PO DAILY@1800 [facility] Last Admin: 11/26/16 18:18 Dose: 5 mg ASSESSMENT AND PLAN: Abdomminal Pain Cholelithiasis GI Bleed Supratherapeutic INR Atrial Fibrillation UTI h/o CVA h/o Cardiac Arrest s/p ICD Hyperlipidemia DM Hypothyroidism - continue antibiotics - monitor H/H - continue anticoagulation - rate controlled - consider GI evaluation - PO as tolerated - can monitor on floor
--- NOTE | 2016-11-27 15:50 | PN ---
Physical Exam: SUBJECTIVE: Patient seen and examined. He still complaints of abdominal pain. He did have a large BM yesterday. Denies nausea, vomiting, tolerating PO diet. Trace hematuria OBJECTIVE: Vital Signs Period Temp Pulse Resp BP Sys/Mac Pulse Ox Last 24 Hr 98 F-99 F 65-74 16-114 102-129/66-85 94-95 PE Neuro: alert, awake, cn 2-12intact HEENT: healed trach hole Pulm: diminished distant BS CV: s1 s2 rrr no mrg Abd: diffuse abd tenderness to palpation specific R and LUQ Ext: no le edema, warm Laboratory Results - last 24 hr 11/27/16 11/27/16 11/27/16 05:20 05:20 05:20 WBC 21.1 H RBC 4.21 Hgb 12.1 Hct 37.7 MCV 89.5 MCHC 32.1 RDW 13.3 Plt Count 112 L MPV 10.5 Neutrophils % 30.0 L Lymphocytes % 66.0 H Monocytes % 3.0 L Eosinophils % 1.0 Differential Comment Manual diff done Smudge Cells Many Platelet Estimate Decreased INR 2.78 H Sodium 140 Potassium 4.3 Chloride 100 Carbon Dioxide 33 H Anion Gap 7 L BUN 24 H D Creatinine 1.4 H POC Glucometer Random Glucose 106 Calcium 8.7 Magnesium 2.5 H 11/26/16 11/27/16 14:20 05:20 INR 3.47 H 2.78 H Active Medications Generic Name Dose Route Start Last Admin Trade Name Freq PRN Reason Stop Dose Admin Amiodarone HCl 200 mg 11/26/16 10:00 11/27/16 09:23 Cordarone - PO 200 mg DAILY AICHA Administration Atorvastatin Calcium 20 mg 11/26/16 22:00 11/26/16 21:09 Lipitor - PO 20 mg HS AICHA Administration Carvedilol 6.25 mg 11/26/16 22:00 11/27/16 09:27 Coreg - PO 6.25 mg BID AICHA Administration Chlorhexidine Gluconate 1 applic 11/26/16 22:00 11/26/16 21:30 Hibiclens For Decolonization - TP 1 applic HS AICHA Administration Folic Acid 1 mg 11/26/16 10:00 11/27/16 09:24 Folic Acid - PO 1 mg DAILY AICHA Administration Furosemide 20 mg 11/26/16 10:00 11/26/16 10:33 Lasix - PO 20 mg DAILY AICHA Administration Sodium Chloride 1,000 mls @ 75 mls/hr 11/26/16 17:00 11/27/16 02:46 Normal Saline - IV 75 mls/hr ASDIR AICHA Administration Insulin Aspart 1 vial 11/26/16 07:00 11/27/16 11:41 Novolog Vial Sliding Scale - SQ 2 units ACHS AICHA Administration Protocol Levetiracetam 500 mg 11/26/16 10:00 11/27/16 09:24 Keppra Xr - PO 500 mg DAILY AICHA Administration Levothyroxine Sodium 75 mcg 11/26/16 07:00 11/27/16 06:07 Synthroid - PO 75 mcg AM AICHA Administration Lisinopril 5 mg 11/26/16 10:00 11/27/16 09:24 Prinivil PO 5 mg DAILY AICHA Administration Mupirocin 1 applic 11/26/16 10:00 11/26/16 21:09 Bactroban Ointment (For Decolonization) - NS 12/01/16 09:59 1 applic BID AICHA Administration Olanzapine 2.5 mg 11/26/16 10:00 11/27/16 09:30 Zyprexa - PO 2.5 mg DAILY AICHA Administration Polyethylene Glycol 17 gm 11/25/16 22:39 11/27/16 09:26 Miralax (For Daily Use) - PO 17 gm DAILY AICHA Administration Senna/Docusate Sodium 1 tablet 11/25/16 22:45 11/27/16 09:29 Pericolace - PO 1 tablet BID AICHA Administration Warfarin Sodium 5 mg 11/26/16 18:00 11/26/16 18:18 Coumadin - PO 5 mg DAILY@1800 AICHA Administration Imaging: - CTAP 11/26: with cholelithiasis and sludge, however no ductal dilation or gb thickening, possible passage of left renal stone due to mild left perinephric/ periureteral stranding, mild prostate enlargement - Bladder US noted urinary retention, however no post void residual measurement taken, prostate gland small - 08/2015 Stress: no ischemia, nml EF Assessment: 61 year old male with PMHx of cardiac arrest with anoxic brain injury post cardiac arrest, f/b AICD placement, 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 Plan: 1. Supra therapeutic INR - Improving - Resume home coumadin dose 7.5mg HS - 2units FFP 11/26 2. Diffuse abd pain - Leukocytosis, possible due to GI etiology, however unclear, consider moving gall stones, as cholelithiasis present - GI consulted 3. A fib, hx of CVA - Coreg 6.25 BID - Amiodarone 200mg daily - Coumadin 7.5mg hs 4. UTI - Urine cx negative - Leukocytosis increased, possible reactive as levels labile - Will cont, Ceftriaxone (day 2) 5. TUNG on ?CKD - Unknown baseline, urine studies wnl - Cr improving - Hold JUANITA, lasix 6. Proteinuria - Likely d/t HTN and CM - Will need renal work up 7. DM II - ISS, BGM ACHS 8. HTN - Meds above 9. HLD - Lipitor 20mg HS 10. Seizures, empiric 2/2 CVA ? - Keppra level therapeutic - Continue keppra 500mg daily 11. Bipolar - Zyprexa daily 12. Hypothyroid - Synthroid 75mcg daily 13. Urinary retention - Voiding freely 14. Constipation - Resolved Visit type - Emergency Visit Emergency Visit: Yes ED Registration Date: 11/25/16 Care time: The patient presented to the Emergency Department on the above date and was hospitalized for further evaluation of their emergent condition. - New Patient This patient is new to me today: No - Critical Care Critical Care patient: No
[2016-11-27] MEDS: WARFARIN NA 7.5 MG TABLET (FP) PO SCH (18:19)
--- NOTE | 2016-11-27 19:18 | CON.GI ---
Consult Consult Specialty:: GI Referred by:: Hospitalist Reason for Consultation:: Constipation - History of Present Illness Chief Complaint: I haven't had a bowel movement in 1 week" History of Present Illness: 61M admitted through [facility] for evaluation of abdominal pain. He describes not having had a bowel movement for a week. He denies asssociated nausea, vomiting , rectal bleeding. He had a BM yesterday and today. He believes that he had a colonoscopy years ago at [place] that was "OK". INR was also significantly elevated and he had hematuria. CT scan of the abdomen and pelvis with PO contrast failed to reveal evidence of bowel obstruction but did reveal left periureteral inflammatory changes. His WBC is elevated of unclear etiology. He has hypothyroidism but there is no TSH for review. He is on Olanzapine and amiodarone, both of which can potentiate constipation. There is no family history of colorectal cancer or other GI malignancy - History Source History Provided By: Patient, Medical Record Limitations to Obtaining History: No Limitations - Past Medical History BROKER: Yes: CVA Cardio/Vascular: Yes: CAD (s/p cardiac arrest 2009 with placement of defibrilator) Endocrine: Yes: Hypothyroidism - Past Surgical History Additional Surgical History: Tracheostomy, Gastrostomy, mastoidectomy (right) as child - Alcohol/Substance Use Hx Alcohol Use: Yes - Smoking History Smoking history: Current some day smoker Have you smoked in the past 12 months: Yes Aproximately how many cigarettes per day: 20 - Social History ADL: Independent Occupation: disabled Place of : [facility] History of Recent Travel: No Home Medications - Allergies Allergies/Adverse Reactions: Allergies Allergy/AdvReac Type Severity Reaction Status Date / Time heparin AdvReac Severe Verified 11/27/16 14:26 - Home Medications Home Medications: Ambulatory Orders Amiodarone HCl 200 mg PO DAILY 11/25/16 Aspirin [ASA -] 81 mg PO DAILY 11/25/16 Carvedilol [Coreg -] 6.25 mg PO ONCE 11/25/16 Folic Acid 1 mg PO DAILY 11/25/16 Furosemide 20 mg PO DAILY 11/25/16 Glimepiride 2 mg PO DAILY 11/25/16 Levetiracetam [Keppra Xr -] 500 mg PO DAILY 11/25/16 Levothyroxine [Synthroid -] 75 mcg PO DAILY 11/25/16 Lisinopril [Zestril] 5 mg PO DAILY 11/25/16 Metformin HCl 850 mg PO DAILY 11/25/16 Olanzapine 2.5 mg PO DAILY 11/25/16 Pravastatin Sodium [Pravachol (Nf)] 80 mg PO HS 11/25/16 Warfarin Sodium 7.5 mg PO DAILY 11/25/16 Family Disease History - Family Disease History Family Disease History: Other: Father ( 80's: in sleep), Mother ( 70's: COPD complications), Brother ( 60's in sleep), Sister (2 healthy sisters) Other Family History: No family history of colorectal cancer Review of Systems - Review of Systems Constitutional: denies: Chills, Fever, Unintentional Wgt. Loss Cardiovascular: denies: Chest Pain Respiratory: denies: SOB Gastrointestinal: reports: Abdominal Pain, Bloating, Constipation. denies: Diarrhea, Dysphagia, Rectal Bleeding, Vomiting Physical Exam-GI Vital Signs: Vital Signs Temperature 98.7 F 11/27/16 17:00 Pulse Rate 56 L 11/27/16 17:00 Respiratory Rate 18 11/27/16 17:00 Blood Pressure 108/56 11/27/16 17:00 O2 Sat by Pulse Oximetry (%) 94 L 11/27/16 07:40 Constitutional: Yes: Calm Eyes: No: Sclera Icterus Cardiovascular: Yes: Regular Rate and Rhythm Respiratory: Yes: CTA Bilaterally Gastrointestinal Inspection: Yes: Scars (faint upper abdominal scar) ...Auscultate: Yes: Normoactive Bowel Sounds ...Palpate: Yes: Tenderness (TTP left flank, right abdomen, No RUQ TTP). No: Hepatomegaly, Splenomegaly, Tenderness, Rebound ...Percussion: No: Tympanitic ...Rectal Exam: Yes: Other (Formed brown stool in the rectal vault guaiac negative) Edema: Yes (trace LE edema) Labs: CBC, BMP 11/27/16 05:20 11/27/16 05:20 INR, PTT INR 2.78 (0.82-1.09) H 11/27/16 05:20 Fibrinogen 462.0 mg/dL (238-498) 11/25/16 17:50 Hepatic Panel Total Bilirubin 0.6 mg/dL (0.2-1.0) 11/26/16 05:20 AST 28 U/L (15-37) 11/26/16 05:20 ALT 35 U/L (12-78) 11/26/16 05:20 Alkaline Phosphatase 68 U/L (45-117) 11/26/16 05:20 Albumin 3.6 g/dl (3.4-5.0) 11/26/16 05:20 Imaging - Results X-ray: Report Reviewed, Image Reviewed Cat Scan: Report Reviewed, Image Reviewed Problem List - Problems (1) Constipation Assessment/Plan: Had BM yesterday and today Advise: Golyteley 1 L x 1 then continue bowel regiment of MiraLAX 17g Twice daily Ordered TSH for the morning Code(s): K59.00 - CONSTIPATION, UNSPECIFIED
[2016-11-27] MEDS ORDERED: PEG3350/SOD SULF,BICARB,CL/KCL 4,000 ML SOLN.RECON PO ONE (19:25)
[2016-11-27] MEDS ORDERED: MUPIROCIN 2% TOPICAL OINTMENT FOR DECOLONIZATION NS SCH (22:00)
[2016-11-27] MEDS ORDERED: SENNOSIDES/DOCUSATE COMBO (SENNA PLUS) TABLET (UD) PO SCH (22:00)
[2016-11-27] MEDS: ATORVASTATIN CA 20 MG TABLET (FP) PO SCH (22:22)
[2016-11-28] MEDS: LEVOTHYROXINE NA 75 MCG TABLET (FP) PO SCH (06:08)
[2016-11-28] MEDS: INSULIN SLIDING SCALE (NOVOLOG) 1 VIAL SQ SCH ×4 (06:09→22:42)
[2016-11-28 08:22] LABS: MCHC 32.6 g/dl (32.0-35.9); MEAN CELL VOLUME 88.9 fl (80-96); MEAN PLT VOLUME 9.8 fl (7.5-11.1); PLATELET COUNT 93 K/MM3 (134-434); RDW 12.8 % (11.9-15.9); WHITE BLOOD COUNT 14.8 K/mm3 (4.0-10.0)
[2016-11-28 08:35] LABS: INR 2.6 (0.82-1.09); PROTHROMBIN TIME (PATIENT) 29.2 SEC (9.98-11.88)
[2016-11-28 08:41] LABS: CALCIUM 8.4 mg/dL (8.5-10.1); COCKROFT - GAULT 120.24; CREATININE 1.1 mg/dL (0.7-1.3); MAGNESIUM 2.4 mg/dL (1.8-2.4); PHOSPHOROUS 2.2 mg/dL (2.5-4.9)
--- NOTE | 2016-11-28 09:19 | PN ---
Physical Exam: SUBJECTIVE: Patient seen and examined at bedside. Patient reports small firm BM overnight. He denies nausea, vomiting, diarrhea or bloody stools. He states he had some difficulty passing stools. OBJECTIVE: Vital Signs 3 Period Temp Pulse Resp BP Sys/Mac Pulse Ox Last 24 Hr 97.9 F-98.7 F 56-82 18-114 108-132/56-85 95 GENERAL: The patient is awake, alert, and fully oriented, in no acute distress. HEAD: Normal with no signs of trauma. EYES: PERRL, extraocular movements intact, sclera anicteric, conjunctiva clear. No ptosis. ENT: Ears normal, nares patent, oropharynx clear without exudates, moist mucous membranes. NECK: Trachea midline, full range of motion, supple. LUNGS: Breath sounds equal, clear to auscultation bilaterally, no wheezes, no crackles, no accessory muscle use. HEART: Regular rate and rhythm, S1, S2 without murmur, rub or gallop. ABDOMEN: Soft, nontender, profoundly distended, normoactive bowel sounds, no guarding, no rebound, no splenomegaly, no masses. +hepatomegaly. -Fluid wave. : Clear yellow urine noted in urinal. EXTREMITIES: 2+ pulses, warm, well-perfused, no edema. NEUROLOGICAL: Cranial nerves II through XII grossly intact. Normal speech, gait not observed. PSYCH: Normal mood, normal affect. SKIN: Warm, dry, normal turgor, no rashes or lesions noted Laboratory Results - last 24 hr 3 11/27/16 11/27/16 11/27/16 05:32 11:36 16:54 WBC RBC Hgb Hct MCV MCHC RDW Plt Count MPV Neutrophils % Lymphocytes % INR Sodium Potassium Chloride Carbon Dioxide Anion Gap BUN Creatinine POC Glucometer [phone] [phone] Random Glucose Calcium Phosphorus Magnesium 3 11/27/16 11/27/16 11/28/16 17:34 22:24 06:07 WBC RBC Hgb Hct MCV MCHC RDW Plt Count MPV Neutrophils % Lymphocytes % INR Sodium Potassium Chloride Carbon Dioxide Anion Gap BUN Creatinine POC Glucometer 114 113 112 Random Glucose Calcium Phosphorus Magnesium 3 11/28/16 11/28/16 11/28/16 07:30 07:30 07:30 WBC 14.8 H RBC 3.94 L Hgb 11.4 L Hct 35.0 L MCV 88.9 MCHC 32.6 RDW 12.8 Plt Count 93 L MPV 9.8 Neutrophils % Y Lymphocytes % Y INR 2.60 H Sodium 138 Potassium 4.1 Chloride 101 Carbon Dioxide 32 Anion Gap 5 L BUN 20 H Creatinine 1.1 D POC Glucometer Random Glucose 93 Calcium 8.4 L Phosphorus 2.2 L Magnesium 2.4 Active Medications 3 Generic Name Dose Route Start Last Admin Trade Name Freq PRN Reason Stop Dose Admin Amiodarone HCl 200 mg 11/28/16 10:00 Cordarone - PO DAILY [facility] Atorvastatin Calcium 20 mg 11/27/16 22:00 11/27/16 22:22 Lipitor - PO 20 mg HS [facility]IC[facility] Administration Carvedilol 6.25 mg 11/27/16 22:00 11/27/16 22:22 Coreg - PO 6.25 mg BID AIC[facility] Administration Ceftriaxone Sodium 1 gm 11/28/16 10:00 Rocephin 1gm Ivpb (Pre-Docked) IVPB DAILY [facility] Folic Acid 1 mg 11/28/16 10:00 Folic Acid - PO DAILY [facility] Insulin Aspart 1 vial 11/27/16 22:00 11/28/16 06:09 Novolog Vial Sliding Scale - SQ Not Given ACHS [facility] Protocol Levetiracetam 500 mg 11/28/16 10:00 Keppra Xr - PO DAILY [facility] Levothyroxine Sodium 75 mcg 11/28/16 07:00 11/28/16 06:08 Synthroid - PO 75 mcg AM [facility] Administration Lisinopril 5 mg 11/28/16 10:00 Prinivil PO DAILY [facility] Mineral Oil 133 ml 11/28/16 10:00 Fleet Mineral Oil Rectal Enema - [place] 12/01/16 09:59 DAILY [facility] Olanzapine 2.5 mg 11/28/16 10:00 Zyprexa - PO DAILY [facility] Warfarin Sodium 7.5 mg 11/27/16 18:00 11/27/16 18:19 Coumadin - PO 7.5 mg DAILY@1800 [facility] Administration IMAGING: CTAP 11/[address] Mix: with cholelithiasis and sludge, however no ductal dilation or gb thickening, possible passage of left renal stone due to mild left perinephric/periureteral stranding, mild prostate enlargement CTH 11/[address] Mix: No evidence of intracranial pathology. Bladder US 11/[address] Mix: Noted urinary retention, however no post void residual measurement taken, prostate gland small 08/2015 Stress: no ischemia, nml EF ASSESSMENT/PLAN: A: This is a 61 year old male with PMH of anoxic brain injury post cardiac arrest, CVA with neuro deficits in 2009 on Coumadin, s/p AICD, HLD, hypothyroidism, and recent DM II diagnosis admitted with supratherapeutic INR, hematruia, constipation. P: 1. Supra therapeutic INR - Improving - Resume home coumadin dose 7.5mg HS - 2units FFP 11/26 2. Diffuse abd pain - Leukocytosis, possible due to GI etiology, however unclear, consider moving gall stones, as cholelithiasis present - GI following 3. A fib, hx of CVA - Coreg 6.25 BID - Amiodarone 200mg daily - Coumadin 7.5mg hs 4. UTI - Urine cx negative - Leukocytosis increased, possible reactive as levels labile - Will cont, Ceftriaxone (day 3) 5. TUNG on ?CKD - Unknown baseline, urine studies wnl - Cr improving - Hold JUANITA, lasix 6. Proteinuria - Likely 2/2 HTN and CM - Will need renal work up 7. DM II - ISS, BGM ACHS 8. HTN - Meds above 9. HLD - Lipitor 20mg HS 10. Seizures, empiric 2/2 CVA ? - Keppra level therapeutic - Continue keppra 500mg daily 11. Bipolar - Zyprexa daily 12. Hypothyroid - Synthroid 75mcg daily - TSH mildly elevated 13. Urinary retention - Voiding freely 14. Constipation - Small BM s/p Golytely 1 liter - start Miralax bid - DiGiorno following 15. F/E/N - hypophosphotemia- likely from GI pathology- monitor - renal diet 16. PPX - daily warfarin Visit type - Emergency Visit Emergency Visit: Yes ED Registration Date: 11/25/16 Care time: The patient presented to the Emergency Department on the above date and was hospitalized for further evaluation of their emergent condition. - New Patient This patient is new to me today: Yes Date on this admission: 11/28/16 - Critical Care Critical Care patient: No
[2016-11-28] MEDS ORDERED: POLYETHYLENE GLYCOL 3350 119 GM BTL PO SCH ×2 (10:00)
[2016-11-28] MEDS ORDERED: CEFTRIAXONE 1 GM in DEXTROSE 5%-WATER - 50 ML IVPB SCH (10:00)
[2016-11-28] MEDS ORDERED: FUROSEMIDE 20 MG TABLET (FP) PO SCH (10:00)
[2016-11-28 10:04] LABS: THYROID STIMULATING HORMONE 4.4 uIU/ml (0.358-3.74)
[2016-11-28 10:44] LABS: PLATELET ESTIMATE DECREASED (NORMAL)
[2016-11-28] MEDS ORDERED: ACETAMINOPHEN 325 MG TABLET (FP) PO PRN (11:06)
[2016-11-28] MEDS: LISINOPRIL 5 MG TABLET (FP) PO SCH (11:22)
[2016-11-28] MEDS: CARVEDILOL 6.25 MG TABLET (FP) PO SCH ×2 (11:23→22:38)
[2016-11-28] MEDS: OLANZapine 2.5 MG TABLET PO SCH (11:23)
[2016-11-28] MEDS: FOLIC ACID 1 MG TABLET (FP) PO SCH (11:23)
[2016-11-28] MEDS: levETIRAcetam XR 500 MG TAB PO SCH (11:24)
[2016-11-28] MEDS: AMIODARONE HCL 200 MG TABLET (FP) PO SCH (11:25)
[2016-11-28] MEDS: cefTRIAXone 1 GM/50 ML BAG (PRE-DOCKED) IVPB SCH (11:25)
[2016-11-28] MEDS: MINERAL OIL ENEMA 133 ML ENEMA PR SCH (12:41)
[2016-11-28] MEDS: WARFARIN NA 7.5 MG TABLET (FP) PO SCH (17:24)
--- NOTE | 2016-11-28 21:00 | PN ---
GI Progress Note Subjective: Had the 1 L of golyteley last night then the rest was thrown out today. He did not receive anymore No BM today - Objective Vital Signs: Vital Signs Temperature 98.2 F 11/28/16 18:40 Pulse Rate 64 11/28/16 18:40 Respiratory Rate 18 11/28/16 18:40 Blood Pressure 135/71 11/28/16 18:40 O2 Sat by Pulse Oximetry (%) 93 L 11/28/16 09:00 Constitutional: Calm Eyes: No: Sclera Icterus Cardiovascular: Yes: Regular Rate and Rhythm Gastrointestinal Inspection: No: Distention ...Auscultate: Yes: Normoactive Bowel Sounds ...Palpate: Yes: Tenderness (Mild TTP left abdomen) ...Percussion: No: Tympanitic Psychiatric: Yes: Alert, Oriented Labs: CBC, BMP 11/28/16 07:30 11/28/16 07:30 INR, PTT INR 2.60 (0.82-1.09) H 11/28/16 07:30 Fibrinogen 462.0 mg/dL (238-498) 11/25/16 17:50 Laboratory Tests 11/28/16 07:30 TSH 4.40 H Problem List - Problems (1) Constipation Assessment/Plan: No repsonse to 1 liter golyely, will redose tonight TSH elevated. suspect that synthroid needs to be adjusted Eliminate medications as feasible that could be contributing to his constipation Code(s): K59.00 - CONSTIPATION, UNSPECIFIED
[2016-11-28] MEDS: PEG3350/SOD SULF,BICARB,CL/KCL 4,000 ML SOLN.RECON PO ONE (22:33)
[2016-11-28] MEDS: ATORVASTATIN CA 20 MG TABLET (FP) PO SCH (22:38)
[2016-11-29] MEDS: INSULIN SLIDING SCALE (NOVOLOG) 1 VIAL SQ SCH ×4 (06:19→21:35)
[2016-11-29] MEDS: LEVOTHYROXINE NA 75 MCG TABLET (FP) PO SCH (06:19)
[2016-11-29 07:45] LABS: MCH 29.1 pg (25.7-33.7); MCHC 32.6 g/dl (32.0-35.9); MEAN CELL VOLUME 89.3 fl (80-96); MEAN PLT VOLUME 10.2 fl (7.5-11.1); PLATELET COUNT 117 K/MM3 (134-434); RDW 13.3 % (11.9-15.9); WHITE BLOOD COUNT 14.2 K/mm3 (4.0-10.0)
[2016-11-29 08:14] LABS: INR 2.1 (0.82-1.09); PROTHROMBIN TIME (PATIENT) 23.4 SEC (9.98-11.88)
[2016-11-29 08:48] LABS: ALBUMIN 3.4 g/dl (3.4-5.0); ALK PHOS 79 U/L (45-117); ANION GAP 6 (8-16); BILIRUBIN,TOTAL 0.7 mg/dL (0.2-1.0); CALCIUM 8.9 mg/dL (8.5-10.1); CO2 34 mmol/L (21-32); COCKROFT - GAULT 110.22; CREATININE 1.2 mg/dL (0.7-1.3); GLUCOSE,RANDOM 108 mg/dL (74-106); SGOT/AST 33 U/L (15-37); SGPT/ALT 38 U/L (12-78); TOT PROT 6.9 g/dl (6.4-8.2)
--- NOTE | 2016-11-29 09:18 | PN ---
Physical Exam: SUBJECTIVE: Patient seen and examined. He states he had a BM this morning but it was mostly watery. OBJECTIVE: INR 2.1 + bowel sounds, soft distended abdomen, no pain illicited on light palpation of abdomen Added colace TID, on daily mineral enema +on 3 liters of oxygen, saturation @95%, not home oxygen dependent Chest xray ordered hmg/hct stable TSH mildly elevated @4.40-will adjust synthroid Vital Signs Period Temp Pulse Resp BP Sys/Mac Pulse Ox Last 24 Hr 98.2 F-99.2 F 59-74 18-18 109-159/50-71 95 GENERAL: The patient is awake, alert, and fully oriented HEAD: Normal with no signs of trauma. EYES: PERRL, extraocular movements intact, sclera anicteric, conjunctiva clear. No ptosis. ENT: Ears normal, nares patent, oropharynx clear without exudates, moist mucous membranes. NECK: Trachea midline, full range of motion, supple. LUNGS:posterior lungs with diminished breath sounds bilaterally ABDOMEN: distended abdomen, +bowel sounds, BM this a.m. EXTREMITIES: 2+ pulses, warm, well-perfused, no edema. NEUROLOGICAL: Normal speech, gait not observed. PSYCH: Normal mood, normal affect. SKIN: Warm, dry, normal turgor, no rashes or lesions noted Laboratory Results - last 24 hr 11/26/16 11/28/16 11/28/16 14:20 07:30 07:30 WBC RBC Hgb Hct MCV MCHC RDW Plt Count MPV Neutrophils % 28.0 L Lymphocytes % 63.0 H Monocytes % 8.0 D Eosinophils % 1.0 Differential Comment Manual diff done Platelet Estimate Decreased INR Sodium Potassium Chloride Carbon Dioxide Anion Gap BUN Creatinine Creat Clearance w eGFR POC Glucometer Random Glucose Calcium Total Bilirubin AST ALT Alkaline Phosphatase Total Protein Albumin TSH 4.40 H Levetiracetam 24.3 11/28/16 11/28/16 11/28/16 11:19 16:11 22:41 WBC RBC Hgb Hct MCV MCHC RDW Plt Count MPV Neutrophils % Lymphocytes % Monocytes % Eosinophils % Differential Comment Platelet Estimate INR Sodium Potassium Chloride Carbon Dioxide Anion Gap BUN Creatinine Creat Clearance w eGFR POC Glucometer 129 139 141 Random Glucose Calcium Total Bilirubin AST ALT Alkaline Phosphatase Total Protein Albumin TSH Levetiracetam 0611/29/16 11/29/16 06:05 06:05 06:05 WBC 14.2 H RBC 4.26 Hgb 12.4 Hct 38.1 MCV 89.3 MCHC 32.6 RDW 13.3 Plt Count 117 L D MPV 10.2 Neutrophils % Y Lymphocytes % Y Monocytes % Eosinophils % Differential Comment Platelet Estimate INR 2.10 H Sodium 142 Potassium 4.6 Chloride 102 Carbon Dioxide 34 H Anion Gap 6 L BUN 15 D Creatinine 1.2 Creat Clearance w eGFR > 60 POC Glucometer Random Glucose 108 H Calcium 8.9 Total Bilirubin 0.7 AST 33 ALT 38 Alkaline Phosphatase 79 Total Protein 6.9 Albumin 3.4 TSH Levetiracetam 11/29/16 06:19 WBC RBC Hgb Hct MCV MCHC RDW Plt Count MPV Neutrophils % Lymphocytes % Monocytes % Eosinophils % Differential Comment Platelet Estimate INR Sodium Potassium Chloride Carbon Dioxide Anion Gap BUN Creatinine Creat Clearance w eGFR POC Glucometer 119 Random Glucose Calcium Total Bilirubin AST ALT Alkaline Phosphatase Total Protein Albumin TSH Levetiracetam Active Medications Generic Name Dose Route Start Last Admin Trade Name Freq PRN Reason Stop Dose Admin Acetaminophen 650 mg 11/28/16 11:06 11/28/16 12:37 Tylenol - PO 650 mg Q6H PRN Administration FEVER OR PAIN Amiodarone HCl 200 mg 11/28/16 10:00 11/28/16 11:25 Cordarone - PO 200 mg DAILY [facility] Administration Atorvastatin Calcium 20 mg 11/27/16 22:00 11/28/16 22:38 Lipitor - PO 20 mg HS [facility] Administration Carvedilol 6.25 mg 11/27/16 22:00 11/28/16 22:38 Coreg - PO 6.25 mg BID [facility] Administration Ceftriaxone Sodium 1 gm 11/28/16 10:00 11/28/16 11:25 Rocephin 1gm Ivpb (Pre-Docked) IVPB 1 gm DAILY [facility] Administration Folic Acid 1 mg 11/28/16 10:00 11/28/16 11:23 Folic Acid - PO 1 mg DAILY [facility] Administration Insulin Aspart 1 vial 11/27/16 22:00 11/29/16 06:19 Novolog Vial Sliding Scale - SQ Not Given ACHS [facility] Protocol Levetiracetam 500 mg 11/28/16 10:00 11/28/16 11:24 Keppra Xr - PO 500 mg DAILY [facility] Administration Levothyroxine Sodium 75 mcg 11/28/16 07:00 11/29/16 06:19 Synthroid - PO 75 mcg AM [facility] Administration Lisinopril 5 mg 11/28/16 10:00 11/28/16 11:22 Prinivil PO 5 mg DAILY [facility] Administration Mineral Oil 133 ml 11/28/16 10:00 11/28/16 12:41 Fleet Mineral Oil Rectal Enema - [place] 12/01/16 09:59 133 ml DAILY [facility] Administration Olanzapine 2.5 mg 11/28/16 10:00 11/28/16 11:23 Zyprexa - PO 2.5 mg DAILY [facility] Administration Warfarin Sodium 7.5 mg 11/27/16 18:00 11/28/16 17:24 Coumadin - PO 7.5 mg DAILY@1800 [facility] Administration ASSESSMENT/PLAN: This is a 61 year old male with PMH of anoxic brain injury post cardiac arrest, CVA with neuro deficits in 2009 on Coumadin, s/p AICD, HLD, hypothyroidism, and recent DM II diagnosis admitted with supratherapeutic INR, hematruia and constipation. Hematology: Supra therapeutic INR - resolved INR 20 >2.1, Coumadin resumed last night s/p 2units of FFP on 11/26 GI: Abdominal Pain - improving Assessment/Plan: + bowel sounds, soft distended abdomen, no pain illicited on light palpation of abdomen Added colace TID, on daily mineral enema Leukocytosis @14.2, GI following Remains afebrile Constipation - acute Assessment/Plan: Cardiology: CVA history/Atrial Fib. On Coumadin 7.5mg daily Monitor INR On Coreq 6.25mg BID, Amiodorone 200mg daily : UTI:Urine culture negative Receive Ceftriaxone x 4 days Will d/c and monitor off antibiotics Endocrine: Diabetes Mellitus Assessment/Plan: BGMs ac/hs Hypothyroidism Assessment/Plan: On Synthroid, increased to 88mcg for elevated TSH Neurology: Seizures - history Assessment/Plan: On Keppra 500mg daily Visit type - Emergency Visit Emergency Visit: Yes ED Registration Date: 11/25/16 Care time: The patient presented to the Emergency Department on the above date and was hospitalized for further evaluation of their emergent condition. - New Patient This patient is new to me today: Yes Date on this admission: 11/30/16 - Critical Care Critical Care patient: No - Discharge Referral Referred to [facility] Med P.C.: No
[2016-11-29] MEDS: FUROSEMIDE 20 MG TABLET (FP) PO SCH (11:40)
[2016-11-29] MEDS: CARVEDILOL 6.25 MG TABLET (FP) PO SCH ×2 (11:40→21:33)
[2016-11-29] MEDS: AMIODARONE HCL 200 MG TABLET (FP) PO SCH (11:41)
[2016-11-29] MEDS: levETIRAcetam XR 500 MG TAB PO SCH (11:41)
[2016-11-29] MEDS: FOLIC ACID 1 MG TABLET (FP) PO SCH (11:41)
[2016-11-29] MEDS: OLANZapine 2.5 MG TABLET PO SCH (11:42)
[2016-11-29] MEDS: LISINOPRIL 5 MG TABLET (FP) PO SCH (11:42)
[2016-11-29] MEDS: cefTRIAXone 1 GM/50 ML BAG (PRE-DOCKED) IVPB SCH ×2 (11:43→13:12)
[2016-11-29 11:59] LABS: PLATELET ESTIMATE DECREASED (NORMAL); SMUDGE CELLS MANY
[2016-11-29] MEDS: MINERAL OIL ENEMA 133 ML ENEMA PR SCH (12:30)
[2016-11-29] MEDS ORDERED: PEG3350/SOD SULF,BICARB,CL/KCL 4,000 ML SOLN.RECON PO ONE (12:42)
--- NOTE | 2016-11-29 12:42 | PN ---
GI Progress Note Subjective: States having had bowel movements early this morning Abdominal pain improved - Objective Vital Signs: Vital Signs Temperature 98.7 F 11/29/16 09:45 Pulse Rate 62 11/29/16 09:45 Respiratory Rate 18 11/29/16 09:45 Blood Pressure 112/60 11/29/16 09:45 O2 Sat by Pulse Oximetry (%) 95 11/28/16 22:00 Constitutional: Calm Eyes: No: Sclera Icterus Respiratory: Yes: CTA Bilaterally Gastrointestinal Inspection: No: Distention ...Auscultate: Yes: Normoactive Bowel Sounds ...Palpate: Yes: Tenderness (improved TTP left abdomen) Labs: CBC, BMP 11/29/16 06:05 11/29/16 06:05 INR, PTT INR 2.10 (0.82-1.09) H 11/29/16 06:05 Fibrinogen 462.0 mg/dL (238-498) 11/25/16 17:50 Problem List - Problems (1) Constipation Assessment/Plan: Continue golytey lavage today eval of elevated TSH Code(s): K59.00 - CONSTIPATION, UNSPECIFIED
[2016-11-29] MEDS: PEG3350/SOD SULF,BICARB,CL/KCL 4,000 ML SOLN.RECON PO ONE (13:08)
[2016-11-29] MEDS: DOCUSATE SODIUM 100 MG CAPSULE (FP) PO SCH ×2 (13:14→21:33)
[2016-11-29] MEDS: WARFARIN NA 7.5 MG TABLET (FP) PO SCH (17:39)
[2016-11-29] MEDS: ATORVASTATIN CA 20 MG TABLET (FP) PO SCH (21:33)
[2016-11-30] MEDS: DOCUSATE SODIUM 100 MG CAPSULE (FP) PO SCH ×2 (06:10→14:46)
[2016-11-30] MEDS: INSULIN SLIDING SCALE (NOVOLOG) 1 VIAL SQ SCH ×2 (06:12→11:50)
[2016-11-30] MEDS ORDERED: LEVOTHYROXINE NA 88 MCG TABLET (FP) PO SCH (07:00)
[2016-11-30 07:19] LABS: MCH 29.1 pg (25.7-33.7); MCHC 32.7 g/dl (32.0-35.9); MEAN CELL VOLUME 89.2 fl (80-96); MEAN PLT VOLUME 9.8 fl (7.5-11.1); PLATELET COUNT 108 K/MM3 (134-434); RDW 13.1 % (11.9-15.9); WHITE BLOOD COUNT 13.9 K/mm3 (4.0-10.0)
[2016-11-30 08:55] LABS: ALBUMIN 3.2 g/dl (3.4-5.0); ANION GAP 7 (8-16); BILIRUBIN,TOTAL 0.7 mg/dL (0.2-1.0); CALCIUM 8.9 mg/dL (8.5-10.1); CO2 33 mmol/L (21-32); COCKROFT - GAULT 110.22; CREATININE 1.2 mg/dL (0.7-1.3); GLUCOSE,RANDOM 115 mg/dL (74-106); SGOT/AST 30 U/L (15-37); SGPT/ALT 39 U/L (12-78)
[2016-11-30 08:58] LABS: ALK PHOS 73 U/L (45-117); TOT PROT 6.2 g/dl (6.4-8.2); TROPONIN I < 0.02 ng/ml (0.00-0.05)
[2016-11-30 09:13] LABS: PLATELET ESTIMATE DECREASED (NORMAL)
[2016-11-30 09:14] LABS: SMUDGE CELLS MANY
[2016-11-30] MEDS ORDERED: PT OWN MED DRAWER 7, Y5N ONE ×2 (09:27→11:06)
[2016-11-30] MEDS: FOLIC ACID 1 MG TABLET (FP) PO SCH (09:33)
[2016-11-30] MEDS: FUROSEMIDE 20 MG TABLET (FP) PO SCH (09:33)
[2016-11-30] MEDS: AMIODARONE HCL 200 MG TABLET (FP) PO SCH (09:33)
[2016-11-30] MEDS: CARVEDILOL 6.25 MG TABLET (FP) PO SCH (09:33)
[2016-11-30] MEDS: LISINOPRIL 5 MG TABLET (FP) PO SCH (09:33)
[2016-11-30] MEDS: OLANZapine 2.5 MG TABLET PO SCH (09:34)
[2016-11-30] MEDS: MINERAL OIL ENEMA 133 ML ENEMA PR SCH (09:36)
[2016-11-30] MEDS ORDERED: NICOTINE 21 MG/24 HOURS TOPICAL PATCH TD SCH (10:00)
[2016-11-30 10:16] LABS: INR 2.04 (0.82-1.09); PROTHROMBIN TIME (PATIENT) 22.8 SEC (9.98-11.88)
[2016-11-30] MEDS ORDERED: POLYETHYLENE GLYCOL 3350 119 GM BTL PO SCH (11:15)
[2016-11-30] MEDS: levETIRAcetam XR 500 MG TAB PO SCH (11:50)
[2016-11-30] MEDS ORDERED: BISACODYL 10 MG SUPP.RECT RC ONE (14:11)
--- NOTE | 2016-11-30 14:13 | PN ---
Physical Exam: SUBJECTIVE: Patient seen and examined OBJECTIVE: Vital Signs Period Temp Pulse Resp BP Sys/Mac Pulse Ox Last 24 Hr 98 F-98.6 F 58-75 18-20 101-149/59-92 90-98 GENERAL: The patient is awake, alert, and fully oriented, in no acute distress. HEAD: Normal with no signs of trauma. EYES: PERRL, extraocular movements intact, sclera anicteric, conjunctiva clear. No ptosis. ENT: Ears normal, nares patent, oropharynx clear without exudates, moist mucous membranes. NECK: Trachea midline, full range of motion, supple. LUNGS: Breath sounds equal, clear to auscultation bilaterally, no wheezes, no crackles, no accessory muscle use. HEART: Regular rate and rhythm, S1, S2 without murmur, rub or gallop. ABDOMEN: Soft, nontender, nondistended, normoactive bowel sounds, no guarding, no rebound, no hepatosplenomegaly, no masses. EXTREMITIES: 2+ pulses, warm, well-perfused, no edema. NEUROLOGICAL: Cranial nerves II through XII grossly intact. Normal speech, gait not observed. PSYCH: Normal mood, normal affect. SKIN: Warm, dry, normal turgor, no rashes or lesions noted Laboratory Results - last 24 hr 11/29/16 11/29/16 11/30/16 16:54 21:34 06:00 WBC 13.9 H RBC 4.00 Hgb 11.7 Hct 35.7 MCV 89.2 MCHC 32.7 RDW 13.1 Plt Count 108 L MPV 9.8 Neutrophils % 20.0 L Lymphocytes % 71.0 H Monocytes % 7.0 Eosinophils % 1.0 Myelocytes 1 Differential Comment Manual diff done Smudge Cells Many Platelet Estimate Decreased INR Sodium Potassium Chloride Carbon Dioxide Anion Gap BUN Creatinine Creat Clearance w eGFR POC Glucometer 91 169 Random Glucose Calcium Total Bilirubin AST ALT Alkaline Phosphatase Troponin I Total Protein Albumin 11/30/16 11/30/16 11/30/16 06:00 06:00 06:12 WBC RBC Hgb Hct MCV MCHC RDW Plt Count MPV Neutrophils % Lymphocytes % Monocytes % Eosinophils % Myelocytes Differential Comment Smudge Cells Platelet Estimate INR Sodium 142 Potassium 4.6 Chloride 102 Carbon Dioxide 33 H Anion Gap 7 L BUN 16 Creatinine 1.2 Creat Clearance w eGFR > 60 POC Glucometer 118 Random Glucose 115 H Calcium 8.9 Total Bilirubin 0.7 AST 30 ALT 39 Alkaline Phosphatase 73 Troponin I < 0.02 Cancelled Total Protein 6.2 L Albumin 3.2 L 11/30/16 11/30/16 09:30 11:35 WBC RBC Hgb Hct MCV MCHC RDW Plt Count MPV Neutrophils % Lymphocytes % Monocytes % Eosinophils % Myelocytes Differential Comment Smudge Cells Platelet Estimate INR 2.04 H Sodium Potassium Chloride Carbon Dioxide Anion Gap BUN Creatinine Creat Clearance w eGFR POC Glucometer 131 Random Glucose Calcium Total Bilirubin AST ALT Alkaline Phosphatase Troponin I Total Protein Albumin Active Medications Generic Name Dose Route Start Last Admin Trade Name Freq PRN Reason Stop Dose Admin Acetaminophen 650 mg 11/28/16 11:06 11/28/16 12:37 Tylenol - PO 650 mg Q6H PRN Administration FEVER OR PAIN Amiodarone HCl 200 mg 11/28/16 10:00 11/30/16 09:33 Cordarone - PO 200 mg DAILY [facility] Administration Atorvastatin Calcium 20 mg 11/27/16 22:00 11/29/16 21:33 Lipitor - PO 20 mg HS A[facility] Administration Bisacodyl 10 mg 11/30/16 14:11 Dulcolax Suppository - [place] 11/30/16 14:12 ONCE ONE Carvedilol 6.25 mg 11/27/16 22:00 11/30/16 09:33 Coreg - PO 6.25 mg BID [facility] Administration Docusate Sodium 100 mg 11/29/16 14:00 11/30/16 06:10 Colace - PO 100 mg TID A[facility] Administration Folic Acid 1 mg 11/28/16 10:00 11/30/16 09:33 Folic Acid - PO 1 mg DAILY [facility] Administration Furosemide 20 mg 11/29/16 10:00 11/30/16 09:33 Lasix - PO 20 mg DAILY [facility] Administration Insulin Aspart 1 vial 11/27/16 22:00 11/30/16 11:50 Novolog Vial Sliding Scale - SQ Not Given ACHS [facility] Protocol Levetiracetam 500 mg 11/28/16 10:00 11/30/16 11:50 Keppra Xr - PO 500 mg DAILY [facility] Administration Levothyroxine Sodium 88 mcg 11/30/16 07:00 11/30/16 06:10 Synthroid - PO 88 mcg AM [facility] Administration Lisinopril 5 mg 11/28/16 10:00 11/30/16 09:33 Prinivil PO 5 mg DAILY [facility] Administration Mineral Oil 133 ml 11/28/16 10:00 11/30/16 09:36 Fleet Mineral Oil Rectal Enema - [place] 12/01/16 09:59 133 ml DAILY [facility] Administration Nicotine 21 mg 11/30/16 10:00 11/30/16 09:33 Nicoderm Patch - TD 21 mg DAILY [facility] Administration Olanzapine 2.5 mg 11/28/16 10:00 11/30/16 09:34 Zyprexa - PO 2.5 mg DAILY [facility] Administration Polyethylene Glycol 17 gm 11/30/16 11:15 11/30/16 12:05 Miralax (For Daily Use) - PO 17 grams BID [facility] Administration Warfarin Sodium 7.5 mg 11/27/16 18:00 11/29/16 17:39 Coumadin - PO 7.5 mg DAILY@1800 A[facility] Administration ASSESSMENT/PLAN:
--- NOTE | 2016-11-30 15:10 | CON.CARD ---
Consult Consult Specialty:: Cardiology Referred by:: Hospitalist Medicine Reason for Consultation:: h/o cardiac arrest - History of Present Illness Chief Complaint: Hematuria/epistaxis History of Present Illness: Mr Torres is a 61 year old male with past medical history significant for cardiac arrest and coma in 2009, s/p ICD on chronic A/c, hypothyroidism, CVA with residual neuro deficits, recent dx of DMII, admitted for intermittent hematochezia with constipation, hematuria and epstaxis, found to have supratherapeutic INR with accidental coumadin overdose. He denies chest pain, near or true syncope, palpitations, orthopnea, PND or LE edema. Constipation and bleeding has since stopped. - History Source History Provided By: Patient Limitations to Obtaining History: No Limitations - Past Medical History LAB SPECIALIST: Yes: CVA Cardio/Vascular: Yes: CAD (s/p cardiac arrest 2009 with placement of defibrilator) Endocrine: Yes: Hypothyroidism - Past Surgical History Additional Surgical History: Tracheostomy, Gastrostomy, mastoidectomy (right) as child - Alcohol/Substance Use Hx Alcohol Use: Yes - Smoking History Smoking history: Current some day smoker Have you smoked in the past 12 months: Yes Aproximately how many cigarettes per day: 20 - Social History ADL: Independent Occupation: disabled History of Recent Travel: No Home Medications - Allergies Allergies/Adverse Reactions: Allergies Allergy/AdvReac Type Severity Reaction Status Date / Time heparin AdvReac Severe Verified 11/27/16 14:26 - Home Medications Home Medications: Ambulatory Orders Amiodarone HCl 200 mg PO DAILY 11/25/16 Aspirin [ASA -] 81 mg PO DAILY 11/25/16 Carvedilol [Coreg -] 6.25 mg PO ONCE 11/25/16 Folic Acid 1 mg PO DAILY 11/25/16 Furosemide 20 mg PO DAILY 11/25/16 Glimepiride 2 mg PO DAILY 11/25/16 Levetiracetam [Keppra Xr -] 500 mg PO DAILY 11/25/16 Levothyroxine [Synthroid -] 75 mcg PO DAILY 11/25/16 Lisinopril [Zestril] 5 mg PO DAILY 11/25/16 Metformin HCl 850 mg PO DAILY 11/25/16 Olanzapine 2.5 mg PO DAILY 11/25/16 Pravastatin Sodium [Pravachol (Nf)] 80 mg PO HS 11/25/16 Warfarin Sodium 7.5 mg PO DAILY 11/25/16 Family Disease History - Family Disease History Family Disease History: Other: Father ( 80's: in sleep), Mother ( 70's: COPD complications), Brother ( 60's in sleep), Sister (2 healthy sisters) Other Family History: No family history of colorectal cancer Review of Systems - Review of Systems HENT: reports: Epistaxis Vital Signs: Vital Signs Temperature 98.6 F 11/30/16 08:00 Pulse Rate 58 L 11/30/16 08:00 Respiratory Rate 20 11/30/16 08:00 Blood Pressure 128/67 11/30/16 08:00 O2 Sat by Pulse Oximetry (%) 98 11/30/16 09:00 Constitutional: Yes: No Distress, Calm Neck: Yes: Supple Respiratory: Yes: Regular, Diminished Gastrointestinal: Yes: Normal Bowel Sounds, Soft, Abdomen, Obese Cardiovascular: Yes: Regular Rate and Rhythm JVD: No Carotid Bruit: No Heart Sounds: Yes: S1, S2 Edema: No - Other Data Labs, Other Data: CBC, BMP 11/30/16 06:00 11/30/16 06:00 INR, PTT INR 2.04 (0.82-1.09) H 11/30/16 09:30 Fibrinogen 462.0 mg/dL (238-498) 11/25/16 17:50 Troponin, BNP 11/30/16 11/30/16 06:00 06:00 Troponin I < 0.02 Cancelled Troponin, BNP 11/30/16 11/30/16 06:00 06:00 Troponin I < 0.02 Cancelled SR @ 64 1st deg AVB Imaging - Results Chest X-ray: Report Reviewed (NAD) Problem List - Problems (1) Elevated INR (international normalized ratio) due to prior anticoagulant medication ingestion Code(s): R78.89 - FINDING OF OTH SUBSTANCES, NOT NORMALLY FOUND IN BLOOD (2) Hematuria Code(s): R31.9 - HEMATURIA, UNSPECIFIED (3) Cardiomyopathy Code(s): I42.9 - CARDIOMYOPATHY, UNSPECIFIED Qualifiers: Cardiomyopathy type: unspecified Qualified Code(s): I42.9 - Cardiomyopathy, unspecified (4) Single implantable cardioverter-defibrillator (ICD) in situ Code(s): Z95.810 - PRESENCE OF AUTOMATIC (IMPLANTABLE) CARDIAC DEFIBRILLATOR (5) Hyperlipidemia Code(s): E78.5 - HYPERLIPIDEMIA, UNSPECIFIED Qualifiers: Hyperlipidemia type: pure hypercholesterolemia Qualified Code(s): E78.00 - Pure hypercholesterolemia, unspecified; E78.0 - Pure hypercholesterolemia (6) Hypertensive cardiomyopathy Code(s): I11.9 - HYPERTENSIVE HEART DISEASE WITHOUT HEART FAILURE I43 - CARDIOMYOPATHY IN DISEASES CLASSIFIED ELSEWHERE Qualifiers: Heart failure presence: without heart failure Qualified Code(s): I11.9 - Hypertensive heart disease without heart failure; I43 - Cardiomyopathy in diseases classified elsewhere Assessment/Plan 08/2015 Stress: no ischemia, nml EF 1. Cardiomyopathy post arrest s/p ICD 2. PAF->SR 3. HTN/HCVD 4. Type 2 DM 5. Hyperlipidemia 6. Hypothyroidism 7. Seizure d/o P:1. Continue Carvedilol 6.25 bid, lisinopril 5 qd, Lipitor 20 qhs, amio 200 qd , and Lasix 20 qd 2. Agree with d/c ASA and continue coumadin per INR 3. Thank you for consultative opportunity, f/u with Dr. Jasiel Sahni for CV f /u and device interrogation, obtain office records
[2016-11-30] MEDS ORDERED: SIMETHICONE 80 MG TAB.CHEW (FP) PO PRN (15:48)
[2016-11-30 16:10] VITALS: BP 108/88; PULSE 62; TEMP 98.1
--- NOTE | 2016-11-30 16:10 | DS ---
Physical Exam: SUBJECTIVE: Patient seen and examined. Patient has had two bowel movements and still feels like he needs to go more. He denies any nausea/vomiting or diarrhea. OBJECTIVE: Had two moderate sized bowel movements today as witnessed by staff. I reassured patient that it may take a few days for his bowels to become regular and that he should continue with the Miralax twice per day and Colace three times per day. + bowel sounds, no pain illicited on palpation of the abdomen, tolerating his meals, no nausea or vomiting I spoke with Dr. Evangelista this morning who is an agreement with discharge, with home orders of Miralax BID Vital Signs Period Temp Pulse Resp BP Sys/Mac Pulse Ox Last 24 Hr 98 F-98.6 F 58-75 18-20 124-149/65-92 90-98 PHYSICAL EXAM GENERAL: The patient is awake, alert, and fully oriented HEAD: Normal with no signs of trauma. EYES: PERRL, extraocular movements intact, sclera anicteric, conjunctiva clear. No ptosis. ENT: Ears normal, nares patent, oropharynx clear without exudates, moist mucous membranes. NECK: Trachea midline, full range of motion, supple. LUNGS:posterior lungs with diminished breath sounds bilaterally ABDOMEN: distended abdomen, +bowel sounds, two moderate sized BMs today, patient to continue with Miralax BID and colace EXTREMITIES: 2+ pulses, warm, well-perfused, no edema. NEUROLOGICAL: Normal speech, steady gait PSYCH: Normal mood, normal affect. SKIN: Warm, dry, normal turgor, no rashes or lesions noted LABS Laboratory Results - last 24 hr 11/29/16 11/29/16 11/30/16 16:54 21:34 06:00 WBC 13.9 H RBC 4.00 Hgb 11.7 Hct 35.7 MCV 89.2 MCHC 32.7 RDW 13.1 Plt Count 108 L MPV 9.8 Neutrophils % 20.0 L Lymphocytes % 71.0 H Monocytes % 7.0 Eosinophils % 1.0 Myelocytes 1 Differential Comment Manual diff done Smudge Cells Many Platelet Estimate Decreased INR Sodium Potassium Chloride Carbon Dioxide Anion Gap BUN Creatinine Creat Clearance w eGFR POC Glucometer 91 169 Random Glucose Calcium Total Bilirubin AST ALT Alkaline Phosphatase Troponin I Total Protein Albumin 11/30/16 11/30/16 11/30/16 06:00 06:00 06:12 WBC RBC Hgb Hct MCV MCHC RDW Plt Count MPV Neutrophils % Lymphocytes % Monocytes % Eosinophils % Myelocytes Differential Comment Smudge Cells Platelet Estimate INR Sodium 142 Potassium 4.6 Chloride 102 Carbon Dioxide 33 H Anion Gap 7 L BUN 16 Creatinine 1.2 Creat Clearance w eGFR > 60 POC Glucometer 118 Random Glucose 115 H Calcium 8.9 Total Bilirubin 0.7 AST 30 ALT 39 Alkaline Phosphatase 73 Troponin I < 0.02 Cancelled Total Protein 6.2 L Albumin 3.2 L 11/30/16 11/30/16 09:30 11:35 WBC RBC Hgb Hct MCV MCHC RDW Plt Count MPV Neutrophils % Lymphocytes % Monocytes % Eosinophils % Myelocytes Differential Comment Smudge Cells Platelet Estimate INR 2.04 H Sodium Potassium Chloride Carbon Dioxide Anion Gap BUN Creatinine Creat Clearance w eGFR POC Glucometer 131 Random Glucose Calcium Total Bilirubin AST ALT Alkaline Phosphatase Troponin I Total Protein Albumin HOSPITAL COURSE: Date of Admission:11/25/16 Date of Discharge: 11/30/16 ASSESSMENT/PLAN: This is a 61 year old male with PMH of anoxic brain injury post cardiac arrest, CVA with neuro deficits in 2009 on Coumadin, s/p AICD, HLD, hypothyroidism, and recent DM II diagnosis admitted with supratherapeutic INR, hematuria and constipation. Hematology: Supra therapeutic INR - resolved INR 20 >2.0, Coumadin resumed s/p 2units of FFP on 11/26 GI: Abdominal Pain - resolved No abdominal pain on exam Assessment/Plan: + bowel sounds, soft distended abdomen, no pain illicited on light palpation of abdomen No nausea, vomiting, Added colace TID, On Miralax BID Patient to continue Miralax and Colace as instructed Remains afebrile, WBC trending down Constipation - resolved Assessment/Plan: Had 2 moderate sized BMs today, Will send on Miralax BID and Colace Assured patient that he is to continue Miralax and Colace as outpatient Referred to GI as outpatient I spoke to Dr. Evangelista who agreed with the discharge Cardiology: CVA history/Atrial Fib. On Coumadin 7.5mg daily Monitor INR as outpatient On Coreq 6.25mg BID, Amiodorone 200mg daily Cardiology saw patient today, patient to follow up with his geological engineering teacher as outpatient : UTI:Urine culture negative Receive Ceftriaxone x 4 days Hematuria resolved Endocrine: Diabetes Mellitus Assessment/Plan: [facility] ac/hs Hypothyroidism Assessment/Plan: On Synthroid, increased to 88mcg for elevated TSH Repeat TSH in 6 weeks Neurology: Seizures - history Assessment/Plan: On Keppra 500mg daily Disposition: For home discharge to follow up with [employer], [place] [employer] and repeat TSH in 4-6 weeks with PCP. Full Code. Minutes to complete discharge: 60 Discharge Summary Reason For Visit: ELEVATED INR HEMATURIA Current Active Problems Cardiomyopathy (Acute) Constipation (Acute) Elevated INR (international normalized ratio) due to prior anticoagulant medication ingestion (Acute) Hematuria (Acute) Hyperlipidemia (Acute) Hypertensive cardiomyopathy (Acute) Leukocytosis (Acute) Single implantable cardioverter-defibrillator (ICD) in situ (Acute) UTI (urinary tract infection) (Acute) Condition: Improved - Instructions Diet, Activity, Other Instructions: Mr. Torres Your INR is therapeutic, please continue your Coumadin as ordered. Please repeat your INR with your PCP within 3-5 days after discharge. For constipation, please continue the Miralax in the morning and in the evening and Colace three times a day until you become regular with your bowel movements. Please try prune juice as it may help move your bowels. Please follow up with your PCP and geological engineering teacher Dr. Jasiel Sahni for cardiovascular f/u and device interrogation. Your Synthroid dose has been increased to Synthroid 88mcgs daily. Please have your TSH levels checked with your primary care physician in 4-6 weeks. Please follow up with Dr. Evangelista upon discharge ([employer]) Referrals: Jasiel Sahni [Non Staff, Medical] - Jose G Brown [Primary Care Provider] - Gaetano Evangelista DO [Staff Physician] - Disposition: HOME - Home Medications Comprehensive Discharge Medication List: Ambulatory Orders Amiodarone HCl 200 mg PO DAILY 11/25/16 Carvedilol [Coreg -] 6.25 mg PO ONCE 11/25/16 Folic Acid 1 mg PO DAILY 11/25/16 Furosemide 20 mg PO DAILY 11/25/16 Glimepiride 2 mg PO DAILY 11/25/16 Levetiracetam [Keppra Xr -] 500 mg PO DAILY 11/25/16 Lisinopril [Zestril] 5 mg PO DAILY 11/25/16 Metformin HCl 850 mg PO DAILY 11/25/16 Olanzapine 2.5 mg PO DAILY 11/25/16 Pravastatin Sodium [Pravachol -] 80 mg PO HS 11/25/16 Warfarin Sodium 7.5 mg PO DAILY 11/25/16 Docusate Sodium [Colace -] 100 mg PO TID #90 tab 11/30/16 Furosemide [Lasix -] 20 mg PO DAILY tablet 11/30/16 Levothyroxine [Synthroid -] 88 mcg PO AM #30 tablet 11/30/16 Polyethylene Glycol 3350 [Miralax 119 gm Btl -] 17 gm PO BID #1 bottle 11/30/16 Polyethylene Glycol 3350 [Miralax 119 gm Btl -] 17 gm PO BID 14 Days 11/30/16 Warfarin Na [Coumadin -] 7.5 mg PO DAILY@1800 #0 tablet 11/30/16 This patient is new to me today: Yes Date on this admission: 11/30/16 Emergency Visit: Yes ED Registration Date: 11/25/16 Care time: The patient presented to the Emergency Department on the above date and was hospitalized for further evaluation of their emergent condition. Critical Care patient: No - Discharge Referral Referred to [facility] Med P.C.: No
== END 2016-11-30 18:11 | disposition home or self-care (01) | DRG 918 ==
LOC: JER 14:48 → JERBED 20:32 → JICU 21:42 → J5S 11-27 16:57
PROVIDERS: ADMIT Internal Medicine; ATTEND Nurse Practitioner Family
PROC: 30233K1 Transfusion of Nonautologous Frozen Plasma into Peripheral Vein, Percutaneous Approach (ICD-10-PCS; principal; 2016-11-25)
DX: T45.511A Poisoning by anticoagulants, accidental (unintentional), initial encounter (principal); N39.0 Urinary tract infection, site not specified; N17.9 Acute kidney failure, unspecified; I42.8 Other cardiomyopathies; F31.89 Other bipolar disorder; E03.9 Hypothyroidism, unspecified; E78.5 Hyperlipidemia, unspecified; E11.9 Type 2 diabetes mellitus without complications; I49.9 Cardiac arrhythmia, unspecified; F17.210 Nicotine dependence, cigarettes, uncomplicated; D72.829 Elevated white blood cell count, unspecified; R31.9 Hematuria, unspecified; I25.10 Atherosclerotic heart disease of native coronary artery without angina pectoris; K59.09 Other constipation; I11.9 Hypertensive heart disease without heart failure; R33.9 Retention of urine, unspecified; R56.9 Unspecified convulsions; K80.80 Other cholelithiasis without obstruction; E83.39 Other disorders of phosphorus metabolism; I48.91 Unspecified atrial fibrillation; Z91.14 Patient's other noncompliance with medication regimen; Z95.810 Presence of automatic (implantable) cardiac defibrillator; Z86.73 Personal history of transient ischemic attack (TIA), and cerebral infarction without residual deficits
CPT/HCPCS: 36415; 36430; 70450-TC; 71010-TC; 71020-TC; 74000-TC; 74176-TC; 76856-TC; 80048; 80053; 81003; 81015; 82272; 82436; 82550; 82553; 82570; 83690; 83735; 83880; 84100; 84133; 84300; 84443; 84484; 85025; 85027; 85384; 85610; 85730; 86850; 86870; 86900; 86901; 86902; 87086; 93005; 93010; 94010; 94761; 97116-GP; 97161; 99283-25; P9017

== ENCOUNTER 2023-07-27 13:46 | Inpatient (IN) | payer OTHER ==
[2023-07-27] MEDS ORDERED: ALBUTEROL SO4 2.5/IPRATROPIUM 0.5 INH SOL 3 ML VIAL.NEB. NEB ONE ×2 (14:02→20:06)
[2023-07-27] MEDS ORDERED: SODIUM CHLORIDE 0.9% 500 ML INFUS.BAG IV ONE (14:50)
[2023-07-27 15:03] VITALS: BMI 29.5
[2023-07-27] MEDS ORDERED: VANCOMYCIN 1,000 MG in DEXTROSE 5%-WATER - 250 ML IVPB ONE (15:13)
[2023-07-27] MEDS ORDERED: methylPREDNISolone NA SUCC 125 MG/2 ML VIAL IVPB ONE (15:14)
[2023-07-27 15:33] LABS: BASO % 0.3 % (0-2.0); EOS % 0.5 % (0-4.5); HEMOGLOBIN 10.5 GM/dL (11.7-16.9); MCH 20.2 pg (25.7-33.7); MEAN CELL VOLUME 65.3 fl (80-96); MEAN PLT VOLUME 8.8 fl (7.5-11.1); MONO % 7.5 % (3.8-10.2); NEUT % 79.7 % (42.8-82.8); PLATELET COUNT 108 10^3/uL (134-434); RDW 18.5 % (11.9-15.9); WHITE BLOOD COUNT 7.3 K/mm3 (4.0-10.0)
[2023-07-27 15:49] LABS: POTASSIUM 4.1 mmol/L (3.5-5.1)
[2023-07-27 15:51] LABS: CALCIUM 9.3 mg/dL (8.5-10.1)
[2023-07-27 15:52] LABS: ALBUMIN 3.3 g/dl (3.4-5.0); MAGNESIUM 2.1 mg/dL (1.8-2.4)
[2023-07-27 15:55] LABS: CREATININE 1.6 mg/dL (0.55-1.3)
[2023-07-27 15:57] LABS: BILIRUBIN,TOTAL 1.2 mg/dL (0.2-1); TOT PROT 6.7 g/dl (6.4-8.2)
[2023-07-27 16:01] LABS: N-TERMINAL BNP 1872.1 pg/ml (5-125)
[2023-07-27] MEDS ORDERED: methylPREDNISolone NA SUCC 125 MG/2 ML VIAL ONE (16:09)
[2023-07-27 16:47] LABS: ARTERIAL BLD GAS O2 SATURATION 92.8 % (95-98); ARTERIAL BLOOD GAS PO2 61.5 mmHg (80-100); ARTERIAL BLOOD GAS pH 7.462 (7.350-7.450)
[2023-07-27 16:48] LABS: ALLENS TEST POSITIVE
[2023-07-27] MEDS ORDERED: CEFTRIAXONE 1 GM/50 ML BAG ONE (16:57)
[2023-07-27 16:59] LABS: ANISOCYTOSIS 2+; MACROCYTOSIS 1+; OVALOCYTE 1+
[2023-07-27] MEDS ORDERED: VANCOMYCIN 1 GRAM (PRE-DOCKED) 1,000 MG/250 ML BAG IVPB ONE (17:23)
[2023-07-27] MEDS ORDERED: ACETAMINOPHEN 1000 MG/100 ML BAG IVPB ONE (17:50)
[2023-07-27] MEDS ORDERED: ACETAMINOPHEN INJECTION 100 ML IVPB ONE (17:59)
[2023-07-27] MEDS ORDERED: WARFARIN NA 7.5 MG TABLET PO SCH (18:00)
[2023-07-27 18:23] LABS: EPI CELLS 11 /uL (0-25.1); HYALINE CASTS 3 /uL (0-3.1); PH,URINE 5.5 (5.0-8.0); URINE APPEARANCE CLEAR; URINE BACTERIA 5 /uL (0-1359); URINE BILIRUBIN NEGATIVE (NEGATIVE); URINE COLOR YELLOW; URINE GLUCOSE (UA) TRACE (NEGATIVE); URINE KETONE NEGATIVE (NEGATIVE); URINE LEUK ESTERASE NEGATIVE (NEGATIVE); URINE NITRITE NEGATIVE (NEGATIVE); URINE PROTEIN 2+ (NEGATIVE); URINE RBC 17 /uL (0-23.9); URINE WBC 16 /uL (0-25.8)
[2023-07-27] MEDS ORDERED: PIPERACILLIN/TAZOB 3.375 GM 3.375 GM in DEXTROSE 5%-WATER - 50 ML IVPB ONE (18:29)
[2023-07-27] MEDS ORDERED: PIPERACILLIN/TAZOB 3.375 GM 3.375 GM/50 ML BAG IVPB ONE (18:47)
[2023-07-27] MEDS: ALBUTEROL SO4 2.5/IPRATROPIUM 0.5 INH SOL 3 ML VIAL.NEB. NEB SCH (20:08)
[2023-07-27] MEDS ORDERED: ACETAMINOPHEN 1000 MG/100 ML BAG IVPB PRN (21:59)
[2023-07-27] MEDS ORDERED: levETIRAcetam 500 MG TABLET (FP) PO SCH (22:00)
[2023-07-28] MEDS ORDERED: PIPERACILLIN/TAZOB 3.375 GM 3.375 GM in DEXTROSE 5%-WATER - 50 ML IVPB SCH (02:00)
[2023-07-28] MEDS ORDERED: PIPERACILLIN/TAZOB 3.375 GM 3.375 GM/50 ML BAG IVPB ONE (02:18)
[2023-07-28] MEDS: PIPERACILLIN/TAZOB 3.375 GM 3.375 GM in DEXTROSE 5%-WATER - 50 ML IVPB SCH ×2 (02:26→09:46)
[2023-07-28] MEDS: methylPREDNISolone NA SUCC 40 MG/1 ML VIAL IVPUSH SCH ×3 (05:40→21:38)
[2023-07-28] MEDS ORDERED: INSULIN (LEVEMIR) 100 UNITS/ML UNITS SQ SCH (07:00)
[2023-07-28] MEDS: INSULIN ASPART SLIDING SCALE (NOVOLOG) 1 VIAL SQ SCH ×4 (07:13→21:51)
[2023-07-28 08:18] LABS: BASO % 0.2 % (0-2.0); HEMATOCRIT 30.8 % (35.4-49); HEMOGLOBIN 9.5 GM/dL (11.7-16.9); LYMPH % 15.3 % (8-40); MCH 20.2 pg (25.7-33.7); MCHC 30.9 g/dl (32.0-35.9); MEAN CELL VOLUME 65.3 fl (80-96); MEAN PLT VOLUME 8.7 fl (7.5-11.1); MONO % 4.2 % (3.8-10.2); NEUT % 80.3 % (42.8-82.8); PLATELET COUNT 84 10^3/uL (134-434); RBC 4.72 M/mm3 (4.00-5.60); RDW 17.9 % (11.9-15.9); WHITE BLOOD COUNT 3.3 K/mm3 (4.0-10.0)
[2023-07-28] MEDS: ALBUTEROL SO4 2.5/IPRATROPIUM 0.5 INH SOL 3 ML VIAL.NEB. NEB SCH ×4 (08:18→20:33)
[2023-07-28 08:23] LABS: INR 1.34 (0.83-1.09); PROTHROMBIN TIME (PATIENT) 15.5 SEC (9.7-13.0)
[2023-07-28 08:38] LABS: CHLORIDE 93 mmol/L (98-107); POTASSIUM 4.6 mmol/L (3.5-5.1); SODIUM 129 mmol/L (136-145)
[2023-07-28 08:49] LABS: ANION GAP 8 mmol/L (4-13); BLOOD UREA NITROGEN 34.4 mg/dL (7-18); CALCIUM 8.9 mg/dL (8.5-10.1); CO2 28 mmol/L (21-32)
[2023-07-28 08:52] LABS: SGOT/AST 10 U/L (15-37); SGPT/ALT 20 U/L (13-61)
[2023-07-28 08:53] LABS: CREATININE 1.5 mg/dL (0.55-1.3)
[2023-07-28 08:54] LABS: BILIRUBIN,TOTAL 0.9 mg/dL (0.2-1); TOT PROT 5.9 g/dl (6.4-8.2)
[2023-07-28 08:55] LABS: ALK PHOS 71 U/L (45-117)
[2023-07-28 08:56] LABS: GLUCOSE,RANDOM 423 mg/dL (74-106)
[2023-07-28] MEDS: FOLIC ACID 1 MG TABLET (FP) PO SCH (09:46)
[2023-07-28] MEDS: POLYETHYLENE GLYCOL (HEALTHYLAX) 3350 17 GM PACKET PO SCH ×2 (09:46→21:38)
[2023-07-28] MEDS ORDERED: AMIODARONE HCL 200 MG TABLET PO SCH (10:00)
[2023-07-28] MEDS ORDERED: FUROSEMIDE 40 MG TABLET (FP) PO SCH (10:00)
[2023-07-28] MEDS ORDERED: INSULIN (NOVOLOG) ASPART 100 UNITS/ML 10ML VIAL ONE ×2 (10:40→21:50)
[2023-07-28] MEDS ORDERED: INSULIN (NOVOLOG) ASPART 100 UNITS/ML 10ML VIAL SQ ONE ×2 (11:00→17:25)
[2023-07-28] MEDS: FLUTICASONE/UMECLIDIN/VILANTER(200-62.5-25 TRELEGY ELLIPTA) INAHLER IH SCH (15:34)
[2023-07-28] MEDS: BACITRACIN ZINC 15 GM TUBE TOPICAL OINTMENT TP SCH (18:43)
[2023-07-28] MEDS: FUROSEMIDE 40 MG/4 ML INJECTABLE VIAL IVPUSH SCH (18:43)
[2023-07-28] MEDS: CARVEDILOL 3.125 MG TABLET (FP) PO SCH (21:37)
[2023-07-28] MEDS: FLUTICASONE PROP 0.05% 16 GM NASAL SPRAY NS SCH (21:38)
[2023-07-28] MEDS: APIXABAN 5 MG TABLET PO SCH (21:38)
[2023-07-28] MEDS: INSULIN (LEVEMIR) 100 UNITS/ML UNITS SQ SCH (21:51)
[2023-07-28] MEDS ORDERED: QUEtiapine FUMARATE 25 MG TABLET PO SCH (22:00)
[2023-07-28] MEDS ORDERED: DOCUSATE SODIUM 100 MG CAPSULE (FP) PO SCH ×2 (22:00)
[2023-07-28] MEDS ORDERED: ATORVASTATIN CA 10 MG TABLET (FP) PO SCH (22:00)
[2023-07-29] MEDS: FUROSEMIDE 40 MG/4 ML INJECTABLE VIAL IVPUSH SCH ×2 (05:54→13:30)
[2023-07-29] MEDS ORDERED: INSULIN (NOVOLOG) ASPART 100 UNITS/ML 10ML VIAL ONE ×2 (06:07→13:24)
[2023-07-29] MEDS: INSULIN ASPART SLIDING SCALE (NOVOLOG) 1 VIAL SQ SCH ×3 (06:28→15:15)
[2023-07-29] MEDS: ALBUTEROL SO4 2.5/IPRATROPIUM 0.5 INH SOL 3 ML VIAL.NEB. NEB SCH ×2 (07:28→11:04)
[2023-07-29 07:44] LABS: POTASSIUM 4.5 mmol/L (3.5-5.1)
[2023-07-29 07:50] LABS: BLOOD UREA NITROGEN 35.3 mg/dL (7-18); CALCIUM 9.1 mg/dL (8.5-10.1)
[2023-07-29 07:51] LABS: ALBUMIN 3.1 g/dl (3.4-5.0); MAGNESIUM 2.3 mg/dL (1.8-2.4)
[2023-07-29 07:53] LABS: BILIRUBIN,TOTAL 0.5 mg/dL (0.2-1); TOT PROT 5.8 g/dl (6.4-8.2)
[2023-07-29 07:54] LABS: CREATININE 1.4 mg/dL (0.55-1.3); PHOSPHOROUS 4.3 mg/dL (2.5-4.9)
[2023-07-29 08:05] LABS: BASO % 0.1 % (0-2.0); HEMATOCRIT 28.8 % (35.4-49); HEMOGLOBIN 9.2 GM/dL (11.7-16.9); LYMPH % 13.3 % (8-40); MCH 20.7 pg (25.7-33.7); MCHC 32.1 g/dl (32.0-35.9); MEAN CELL VOLUME 64.5 fl (80-96); MEAN PLT VOLUME 8.8 fl (7.5-11.1); MONO % 5.1 % (3.8-10.2); NEUT % 81.5 % (42.8-82.8); PLATELET COUNT 103 10^3/uL (134-434); RBC 4.46 M/mm3 (4.00-5.60); RDW 17.6 % (11.9-15.9); WHITE BLOOD COUNT 5.6 K/mm3 (4.0-10.0)
[2023-07-29] MEDS ORDERED: TAMSULOSIN HCL 0.4 MG CAP PO SCH (08:30)
[2023-07-29] MEDS ORDERED: SPIRONOLACTONE 25 MG TABLET PO SCH (10:00)
[2023-07-29] MEDS ORDERED: ASPIRIN COATED 81 MG TABLET.EC PO SCH (10:00)
[2023-07-29] MEDS ORDERED: ASPIRIN 81 MG CHEWABLE TABLETS PO SCH (10:00)
[2023-07-29] MEDS ORDERED: ALBUTEROL SO4 2.5/IPRATROPIUM 0.5 INH SOL 3 ML VIAL.NEB. NEB SCH (10:00)
[2023-07-29] MEDS ORDERED: FUROSEMIDE 40 MG TABLET (FP) PO SCH (10:00)
[2023-07-29] MEDS: FOLIC ACID 1 MG TABLET (FP) PO SCH (10:29)
[2023-07-29] MEDS: INSULIN (LEVEMIR) 100 UNITS/ML UNITS SQ SCH (10:29)
[2023-07-29] MEDS: APIXABAN 5 MG TABLET PO SCH (10:29)
[2023-07-29] MEDS: methylPREDNISolone NA SUCC 40 MG/1 ML VIAL IVPUSH SCH (10:30)
[2023-07-29] MEDS: POLYETHYLENE GLYCOL (HEALTHYLAX) 3350 17 GM PACKET PO SCH (10:30)
[2023-07-29] MEDS: BACITRACIN ZINC 15 GM TUBE TOPICAL OINTMENT TP SCH (10:31)
[2023-07-29] MEDS: FLUTICASONE/UMECLIDIN/VILANTER(200-62.5-25 TRELEGY ELLIPTA) INAHLER IH SCH (10:32)
[2023-07-29] MEDS: FLUTICASONE PROP 0.05% 16 GM NASAL SPRAY NS SCH (10:32)
[2023-07-29] MEDS: CARVEDILOL 3.125 MG TABLET (FP) PO SCH (10:54)
[2023-07-29 14:50] VITALS: BP 105/61; PULSE 75; RESP 20; TEMP 97.9
== END 2023-07-29 16:28 | disposition home or self-care (01) | DRG 291 ==
LOC: JER 13:46 → JERBED 17:13 → J4W 07-28 03:52
PROVIDERS: ATTEND Internal Medicine
DX: I11.0 Hypertensive heart disease with heart failure (principal); I50.43 Acute on chronic combined systolic (congestive) and diastolic (congestive) heart failure; J96.21 Acute and chronic respiratory failure with hypoxia; J96.22 Acute and chronic respiratory failure with hypercapnia; J44.1 Chronic obstructive pulmonary disease with (acute) exacerbation; J44.0 Chronic obstructive pulmonary disease with (acute) lower respiratory infection; N17.9 Acute kidney failure, unspecified; E87.1 Hypo-osmolality and hyponatremia; N40.0 Benign prostatic hyperplasia without lower urinary tract symptoms; F03.90 Unspecified dementia, unspecified severity, without behavioral disturbance, psychotic disturbance, mood disturbance, and anxiety; N28.1 Cyst of kidney, acquired; E03.9 Hypothyroidism, unspecified; I25.2 Old myocardial infarction; E78.5 Hyperlipidemia, unspecified; F39 Unspecified mood [affective] disorder; G40.909 Epilepsy, unspecified, not intractable, without status epilepticus; I48.0 Paroxysmal atrial fibrillation; Z99.81 Dependence on supplemental oxygen; Z95.810 Presence of automatic (implantable) cardiac defibrillator; Z86.73 Personal history of transient ischemic attack (TIA), and cerebral infarction without residual deficits
CPT/HCPCS: 0241U-QW; 36415; 36600; 71045-TC-FY; 76775-TC; 80053; 81003; 82803; 82962; 83036; 83605; 83735; 83880; 84100; 84439; 84443; 84484; 85025; 85610; 87040; 87086; 87186; 93005; 93010; 93306-TC; 94640; 99285-25; J0131